=== PATIENT | female | born 1995 | race Hispanic/Latino ===

== ENCOUNTER 2018-02-19 01:33 | Emergency (ER) | payer OTHER, SELFPAY ==
[2018-02-19] MEDS ORDERED: NA CHLORIDE 0.9% 0 ML ONE (02:19)
[2018-02-19] MEDS ORDERED: NA CHLORIDE 0.9% 3,000 ML ONE (02:20)
[2018-02-19] MEDS ORDERED: NA CHLORIDE 0.9% 1,000 ML ONE (02:20)
[2018-02-19 02:27] LABS: Urine Blood TRACE (NEG); Urine Glucose NEGATIVE (NEG); Urine Protein NEGATIVE (NEG); Urine pH 6.5 (5.0-7.0)
[2018-02-19 02:31] LABS: Absolute Lymphocytes (CBC) 1.8 K/uL (0.7-4.9); Absolute Monocytes 0.5 K/uL (0.1-1.3); Absolute Neutrophil 4.8 K/uL (1.8-8.0); Basophils % 0.8 % (0-1.3); Eosinophils % 0.4 % (0-4.4); Hematocrit 43.8 % (36.0-45.0); Lymphocytes % 25.1 % (15.3-44.8); MCH 30.3 pg (27.0-35.0); MCV 92.8 fL (80-100); MPV 9.4 fL (7.6-11.3); Monocytes % 7.1 % (3.3-12.3); RBC Red Blood Cell Count 4.72 M/uL (3.86-4.86)
[2018-02-19 02:34] LABS: Protime INR 1.05
[2018-02-19 02:36] LABS: Barbiturates NEGATIVE; Benzodiazepines POSITIVE; Cocaine POSITIVE; METHAMPHETAM NEGATIVE (NEGATIVE); Opiates NEGATIVE; Phencyclidine NEGATIVE; THC Cannibis POSITIVE
[2018-02-19 02:37] LABS: Bicarbonate 29 mEq/L (21-31); Glucose Level 76 mg/dL (65-120); Potassium 3.3 mEq/L (3.6-5.0); Sodium Level 139 mEq/L (135-145)
[2018-02-19 02:43] LABS: ALT/SGPT 14 IU/L (10-60); AST/SGOT 20 IU/L (10-42); Albumin 5.4 g/dL (3.2-5.5); Alkaline Phosphatase 67 IU/L (42-121); BUN Blood Urea Nitrogen 6 mg/dL (6-20); Bilirubin Direct 0.1 mg/dL (0-0.2); Bilirubin Total 0.9 mg/dL (0.3-1.2); Protein, Total 8.8 g/dL (6.0-8.3)
[2018-02-19 02:48] LABS: Alcohol Serum/Plasma < 10 mg/dl
--- NOTE | 2018-02-19 09:57 | EDPHYS ---
Physician Documentation [facility] Name: Terri Fortune Age: 22 yrs Sex: Female : 1995 Arrival Date: 02/19/2018 Time: 01:59 Bed 3 Private MD: ED Physician Jaron Hernandez HPI: 02/19 05:31 This 22 yrs old Female presents to ER via Ambulatory with complaints of gs Overdose. 05:31 The patient presents to the emergency department after a known overdose, that was gs intentional. Context: Method: the patient has a confirmed or suspected ingestion, of benzodiazepines. Associated signs and symptoms: Pertinent positives: cut left forearm. Severity of symptoms: At their worst the symptoms were mild in the emergency department the symptoms are unchanged. The patient has experienced similar episodes in the past, a few times. The patient has not recently seen a physician. 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 - Social history:: Smoking status: Patient/guardian denies using tobacco, Patient uses alcohol, street drugs, marijuana. - Ebola Screening: : No symptoms or risks identified at this time. ROS: 05:31 All other systems are negative. gs Exam: 05:31 Head/Face: Normocephalic, atraumatic. Eyes: Pupils equal round and reactive to light, gs extra-ocular motions intact. Lids and lashes normal. Conjunctiva and sclera are non-icteric and not injected. Cornea within normal limits. Periorbital areas with no swelling, redness, or edema. ENT: Nares patent. No nasal discharge, no septal abnormalities noted. Tympanic membranes are normal and external auditory canals are clear. Oropharynx with no redness, swelling, or masses, exudates, or evidence of obstruction, uvula midline. Mucous membranes moist. Neck: Trachea midline, no thyromegaly or masses palpated, and no cervical lymphadenopathy. Supple, full range of motion without nuchal rigidity, or vertebral point tenderness. No Meningismus. Chest/axilla: Normal chest wall appearance and motion. Nontender with no deformity. No lesions are appreciated. Cardiovascular: Regular rate and rhythm with a normal S1 and S2. No gallops, murmurs, or rubs. Normal PMI, no JVD. No pulse deficits. Respiratory: Lungs have equal breath sounds bilaterally, clear to auscultation and percussion. No rales, rhonchi or wheezes noted. No increased work of breathing, no retractions or nasal flaring. Abdomen/GI: Soft, non-tender, with normal bowel sounds. No distension or tympany. No guarding or rebound. No evidence of tenderness throughout. Back: No spinal tenderness. No costovertebral tenderness. Full range of motion. MS/ Extremity: Pulses equal, no cyanosis. Neurovascular intact. Full, normal range of motion. Neuro: Awake and alert, GCS 15, oriented to person, place, time, and situation. Cranial nerves II-XII grossly intact. Motor strength 5/5 in all extremities. Sensory grossly intact. Cerebellar exam normal. Normal gait. 05:31 Constitutional: The patient appears alert, awake. 05:31 Skin: injury, laceration(s), the wound is approximately 4 cm(s), with a depth of .1 cm(s), of the palmar aspect of left forearm. 05:31 Psych: Behavior/mood is depressed, Patient having thoughts of suicide. Vital Signs: 02:01 BP 103 / 69; Pulse 98; Resp 20; Temp 97.7(O); Pulse Ox 98% on R/A; Weight 56.7 kg (R); bb Height 5 ft. 2 in. (157.48 cm) (R); Pain 0/10; 02:30 BP 107 / 70; Pulse 80; Resp 19; Pulse Ox 100% on R/A; lp1 03:30 BP 99 / 70; Pulse 71; Resp 20; Pulse Ox 100% on R/A; lp1 05:00 BP 88 / 55; Pulse 55; Resp 19; Pulse Ox 97% on R/A; lp1 05:50 BP 97 / 73; Pulse 60; Resp 20; Pulse Ox 98% on R/A; lp1 07:00 BP 98 / 65; Pulse 58; Resp 19; Pulse Ox 99% on R/A; lp1 08:35 BP 95 / ???; ap 08:35 BP 95 / 69; Pulse 58; Resp 19; Temp 95.8; Pulse Ox 98% ; Pain 0/10; ap 10:22 BP 107 / 80; Pulse 85; Resp 20; Temp 97.5; Pulse Ox 100% ; Pain 0/10; ap 12:06 BP 98 / 67; Pulse 56; Resp 16; Pulse Ox 98% on R/A; sv 14:07 BP 84 / 56; Pulse 64; Resp 13; rv 14:31 BP 83 / 54; Pulse 63; Resp 18; Temp 97.5; Pulse Ox 98% ; Pain 0/10; ap 16:30 BP 103 / 68; Pulse 65; Resp 16; Temp 97.5; Pulse Ox 100% ; Pain 0/10; ap 17:11 BP 105 / 76; Pulse 73; Resp 15; Pulse Ox 99% on R/A; mt 18:00 BP 112 / 85; Pulse 57; Resp 16; Pulse Ox 98% on R/A; mt 19:00 BP 110 / 78; Pulse 68; Resp 18; Pulse Ox 99% on R/A; ea 02:01 Body Mass Index 22.86 (56.70 kg, 157.48 cm) bb MDM: 02:04 Patient medically screened. 05:31 Differential diagnosis: Ingestion/exposure to xanax polypharmacy. Data reviewed: vital gs signs, nurses notes. Response to treatment: the patient's symptoms have markedly improved after treatment. 02/19 02:06 Order name: Acetaminophen; Complete Time: 02:02/19 02:06 Order name: Basic Metabolic Panel; Complete Time: 02:02/19 02:06 Order name: CBC with Diff; Complete Time: 02:02/19 02:06 Order name: ETOH Level; Complete Time: 02:02/19 02:06 Order name: Hepatic Function; Complete Time: 02:02/19 02:06 Order name: PT-INR; Complete Time: 02:02/19 02:06 Order name: Ptt, Activated; Complete Time: 02:02/19 02:06 Order name: Salicylate; Complete Time: 02:02/19 02:06 Order name: Urine Drug Screen; Complete Time: 02:53 02/19 02:06 Order name: EKG; Complete Time: 02:07 02/19 02:15 Order name: Urine Dipstick--Ancillary (enter results); Complete Time: 02:53 mw2 02/19 02:15 Order name: Urine --Ancillary (enter results); Complete Time: 02:53 mw2 02/19 02:06 Order name: EKG - Nurse/Tech; Complete Time: 02:06 bb 02/19 02:06 Order name: IV Saline Lock; Complete Time: 02:07 bb 02/19 02:06 Order name: Labs collected and sent; Complete Time: 02: bb 02/19 02:06 Order name: Urine Dipstick-Ancillary (obtain specimen); Complete Time: 02: bb 02/19 10:16 Order name: Diet Regular; Complete Time: 10:16 sv 02/19 11:02 Order name: Diet Regular; Complete Time: 11:02 hb 02/19 16:21 Order name: Diet Regular; Complete Time: 16:22 sv Administered Medications: 02:17 Drug: NS 0.9% 1000 ml Route: IV; Rate: 1 bolus; Site: right antecubital; bb 03:30 Follow up: IV Status: Completed infusion; IV Intake: 1000ml lp1 10:16 Drug: NS 0.9% 1000 ml Route: IV; Rate: 1 bolus; Site: right antecubital; sv 12:00 Follow up: Response: No adverse reaction; IV Status: Completed infusion; IV Intake: sv 1000ml Disposition: 02/19/18 19:00 Discharged to Home. Impression: Suicide attempt, Adjustment disorder with depressed mood, Hypokalemia, Abuse of non-psychoactive substances, Cocaine abuse with intoxication. - Condition is Stable. - Discharge Instructions: Adjustment Disorder, Stimulant Use Disorder-Cocaine, Potassium Content of Foods, Polysubstance Abuse, Helping Someone Who is Suicidal, Hypokalemia. - Medication Reconciliation Form, Thank You Letter, Antibiotic Education, Prescription Opioid Use form. - Follow up: Private Physician; When: 2 - 3 days; Reason: Recheck today's complaints, Continuance of care, Re-evaluation by your physician. - Problem is new. - Symptoms have improved. Signatures: Dispatcher [employer] EDSari Morris RN RN sv Anderson, Corey, MD MD cha Ballard, Brenda, RN RN bb Antunez, Elena, RN RN ea Starr, Gregory, MD MD gs Pena, Laura RN lp1 Corrections: (The following items were deleted from the chart) 18:58 09:56 02/19/2018 09:56 Transfer ordered to Psych Facility. Diagnosis is Suicide curtis attempt; Major depressive disorder, recurrent; Abuse of non-psychoactive substances; Cocaine abuse. Reason for transfer: Higher level of care. Accepting physician is to psych. Condition is Fair. Problem is new. Symptoms have improved. [facility] 19:17 19:00 02/19/2018 19:00 Discharged to Home. Impression: Suicide attempt; Adjustment ea disorder with depressed mood; Hypokalemia; Abuse of non-psychoactive substances; Cocaine abuse with intoxication. Condition is Stable. Forms are Medication Reconciliation Form, Thank You Letter, Antibiotic Education, Prescription Opioid Use. Follow up: Private Physician; When: 2 - 3 days; Reason: Recheck today's complaints, Continuance of care, Re-evaluation by your physician. Problem is new. Symptoms have improved. curtis
--- NOTE | 2018-02-19 09:57 | ER ---
Nurse's Notes [facility] Name: Terri Fortune Age: 22 yrs Sex: Female : 1995 Arrival Date: 02/19/2018 Time: 01:59 Bed 3 Private MD: Diagnosis: Suicide attempt;Adjustment disorder with depressed mood;Hypokalemia;Abuse of non-psychoactive substances;Cocaine abuse with intoxication Presentation: 02/19 02:00 Presenting complaint: Patient states: she took approx 20 Xanax and drank alcohol about bb 2 hours ago she also cut her left forearm in an attempt to hurt herself. Transition of care: patient was not received from another setting of care. Onset of symptoms was February 19, 2018. Risk Assessment: Do you want to hurt yourself or someone else? Patient reports desire/thoughts of hurting themselves or someone else. Provider notified. Initial Sepsis Screen: Does the patient meet any 2 criteria? No. Patient's initial sepsis screen is negative. Does the patient have a suspected source of infection? No. Patient's initial sepsis screen is negative. Care prior to arrival: None. 02:00 Method Of Arrival: Ambulatory bb 02:00 Acuity: CARRI 2 bb 02:14 Note pt now states she has taken the Xanax over a period of time starting at around bb 1500 yesterday afternoon. [employer]: 02:01 LMP 02/01/2018 bb Historical: - Allergies: 02:01 No Known Allergies; bb - Home Meds: 02:01 None [Active]; bb - PMHx: 02:01 None; bb - PSHx: 02:01 None; bb - Immunization history:: Adult Immunizations up to date. - Social history:: Smoking status: Patient/guardian denies using tobacco, Patient uses alcohol, street drugs, marijuana. - Ebola Screening: : No symptoms or risks identified at this time. Screenin:22 Abuse screen: Denies threats or abuse. Denies injuries from another. Nutritional lp1 screening: No deficits noted. Tuberculosis screening: No symptoms or risk factors identified. Fall Risk None identified. Assessment: 02:25 General: Appears in no apparent distress. Behavior is calm, cooperative. Pain: Denies lp1 pain. Neuro: Level of Consciousness is awake, alert, obeys commands, Oriented to person, place, time, situation, Moves all extremities. Full function Gait is steady, Pupils are PERRLA. Cardiovascular: Patient's skin is warm and dry. Rhythm is sinus rhythm. Respiratory: Airway is patent Respiratory effort is even, unlabored, Respiratory pattern is regular, symmetrical, Breath sounds are clear bilaterally. GI: Abdomen is non-distended. : No signs and/or symptoms were reported regarding the genitourinary system. EENT: No signs and/or symptoms were reported regarding the EENT system. Derm: Skin is pink, warm \T\ dry. Musculoskeletal: Circulation, motion, and sensation intact. 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 03:30 Reassessment: Patient appears in no apparent distress at this time. Patient and/or lp1 family updated on plan of care and expected duration. Pain level reassessed. Patient resting, eyes closed, respirations unlabored; friend at bedside. 04:27 Reassessment: Patient appears in no apparent distress at this time. No changes from 1 previously documented assessment. Patient and/or family updated on plan of care and expected duration. Pain level reassessed. 06:04 Reassessment: [facility] at bedside to evaluate patient. [facility] 06:41 Reassessment: Patient appears in no apparent distress at this time. Patient is alert, lp1 oriented x 3, equal unlabored respirations, skin warm/dry/pink. 07:15 Reassessment: Patient appears in no apparent distress at this time. Patient and/or hb family updated on plan of care and expected duration. Pain level reassessed. Patient is alert, oriented x 3, equal unlabored respirations, skin warm/dry/pink. 10:00 Reassessment: Patient appears in no apparent distress at this time. Patient and/or sv family updated on plan of care and expected duration. Pain level reassessed. Patient is alert, oriented x 3, equal unlabored respirations, skin warm/dry/pink. Pt given a breakfast tray. 11:58 Reassessment: Patient appears in no apparent distress at this time. Patient and/or sv family updated on plan of care and expected duration. Pain level reassessed. Patient is alert, oriented x 3, equal unlabored respirations, skin warm/dry/pink. Pt appears to be sleeping at this time with eyes closed. 12:30 Reassessment: mother (Leigh) left cell phone number , father (Cheikh) iw number is [phone]. 12:30 Reassessment: Pt given lunch tray and water. sv 13:03 Reassessment: Patient appears in no apparent distress at this time. Patient and/or hb family updated on plan of care and expected duration. Pain level reassessed. Patient is alert, oriented x 3, equal unlabored respirations, skin warm/dry/pink. 14:00 Reassessment: Patient appears in no apparent distress at this time. No changes from hb previously documented assessment. Patient and/or family updated on plan of care and expected duration. Pain level reassessed. Patient is alert, oriented x 3, equal unlabored respirations, skin warm/dry/pink. 14:56 Reassessment: Patient appears in no apparent distress at this time. No changes from hb previously documented assessment. Patient and/or family updated on plan of care and expected duration. Pain level reassessed. Patient is alert, oriented x 3, equal unlabored respirations, skin warm/dry/pink. 15:25 Reassessment: Patient appears in no apparent distress at this time. Patient and/or sv family updated on plan of care and expected duration. Pain level reassessed. Pt appears to be sleeping at this time. Family is at the bedside. 16:20 Reassessment: Patient appears in no apparent distress at this time. No changes from sv previously documented assessment. Patient and/or family updated on plan of care and expected duration. Pain level reassessed. Patient is alert, oriented x 3, equal unlabored respirations, skin warm/dry/pink. Pt ambulatory to the bathroom with sitter. Patient denies pain at this time. 17:15 Reassessment: Patient appears in no apparent distress at this time. No changes from hb previously documented assessment. Patient and/or family updated on plan of care and expected duration. Pain level reassessed. Patient is alert, oriented x 3, equal unlabored respirations, skin warm/dry/pink. 18:15 Reassessment: Patient appears in no apparent distress at this time. No changes from hb previously documented assessment. Patient and/or family updated on plan of care and expected duration. Pain level reassessed. Patient is alert, oriented x 3, equal unlabored respirations, skin warm/dry/pink. 18:56 Reassessment: Dr Hernandez at bedside speaking with the pt. sv 19:13 Reassessment: Discharge instructions given to patient, verbalized the understanding of ea instructions. General: Appears in no apparent distress. Behavior is calm, cooperative. Pain: Denies pain. Neuro: Level of Consciousness is awake, alert, obeys commands, Oriented to person, place, time, situation, Gait is steady. Cardiovascular: Patient's skin is warm and dry. Respiratory: Airway is patent Respiratory effort is even, unlabored, Respiratory pattern is regular, symmetrical. Derm: Skin is pink, warm \T\ dry. Psych: 02:15 Subjective: Patient's mood is sad, hopeless, Delusions are denied, Hallucinations are lp1 denied Having thoughts of suicide. Plan for suicide is Patient cut to left wrist with kitchen knife, ingested multiple Xanax pills and alcohol. Objective: Patient is cooperative, Speech is normal, Affect is flat, Patient has mutilated themselves by kitchen knife; superficial lacerations to left wrist. Interventions: Removed personal items and placed in bag. Patient placed in hospital gown. Searched person for dangerous items. Urine collected and sent for urine drug test. Suicide Risk Assessment: Sad Person Scale: Sex of patient: Female: Score 0 points. Age of patient: Score 1 point if patient 15-34. Depression: Score 0 point if signs of depression are not present. Previous Attempt: Score 0 point if patient has not previously attempted suicide. Substance Abuse: Score 1 point if patient abuses alcohol or drugs. Rational Thinking: Score 1 point if patient is lacking rational thinking. Social Support: Score 1 point if social support is lacking and/or unavailable. Organized Plan: Score 1 point if patient had a plan in place. Relationship: Score 1 point if patient is , , , or for a single male Chronic Sickness: Score 0 point if patient does not have a chronic illness, debilitating, or severe disorder. TOTAL POINTS: If total points are 5-6, proposed clinical action is to strongly consider hospitalization, depending upon confidence in the follow-up arrangement. Implement suicide precautions. Safety Checks: Personal items have been removed. Door is open. Visitors are present. 02:15 Pt denies substance abuse. lp1 08:00 Commitment: Patient will be an involuntary commitment. Commitment papers completed. sv Overdose: 02:04 Patient took Xanax 20 pills unknown strength and drank alcohol. Overdose occurred 8-10 bb hours ago. Vital Signs: 02:01 BP 103 / 69; Pulse 98; Resp 20; Temp 97.7(O); Pulse Ox 98% on R/A; Weight 56.7 kg (R); bb Height 5 ft. 2 in. (157.48 cm) (R); Pain 0/10; 02:30 BP 107 / 70; Pulse 80; Resp 19; Pulse Ox 100% on R/A; lp1 03:30 BP 99 / 70; Pulse 71; Resp 20; Pulse Ox 100% on R/A; lp1 05:00 BP 88 / 55; Pulse 55; Resp 19; Pulse Ox 97% on R/A; lp1 05:50 BP 97 / 73; Pulse 60; Resp 20; Pulse Ox 98% on R/A; lp1 07:00 BP 98 / 65; Pulse 58; Resp 19; Pulse Ox 99% on R/A; lp1 08:35 BP 95 / ???; ap 08:35 BP 95 / 69; Pulse 58; Resp 19; Temp 95.8; Pulse Ox 98% ; Pain 0/10; ap 10:22 BP 107 / 80; Pulse 85; Resp 20; Temp 97.5; Pulse Ox 100% ; Pain 0/10; ap 12:06 BP 98 / 67; Pulse 56; Resp 16; Pulse Ox 98% on R/A; sv 14:07 BP 84 / 56; Pulse 64; Resp 13; rv 14:31 BP 83 / 54; Pulse 63; Resp 18; Temp 97.5; Pulse Ox 98% ; Pain 0/10; ap 16:30 BP 103 / 68; Pulse 65; Resp 16; Temp 97.5; Pulse Ox 100% ; Pain 0/10; ap 17:11 BP 105 / 76; Pulse 73; Resp 15; Pulse Ox 99% on R/A; mt 18:00 BP 112 / 85; Pulse 57; Resp 16; Pulse Ox 98% on R/A; mt 19:00 BP 110 / 78; Pulse 68; Resp 18; Pulse Ox 99% on R/A; ea 02:01 Body Mass Index 22.86 (56.70 kg, 157.48 cm) bb ED Course: 01:53 Inserted saline lock: 20 gauge in right antecubital area, using aseptic technique. lp1 Blood collected. By brendon Antoine. 01:59 Patient arrived in ED. bb 02:00 Urine collected: clean catch specimen, clear. lp1 02:01 Triage completed. bb 02:01 Donnell Ang MD is Attending Physician. 02:01 Arm band placed on Patient placed in an exam room, on a stretcher. bb 02:21 Mirian Ha RN is Primary Nurse. lp1 02:22 Patient has correct armband on for positive identification. Placed in gown. Bed in low lp1 position. press washer on. Pulse ox on. NIBP on. 02:45 Safety checks: Items removed: yes. Door open/sign placed on door: yes. Family/friend cb2 present: yes. Family/friends encouraged to stay with patient. 03:00 Safety checks: Items removed: yes. Door open/sign placed on door: yes. Family/friend cb2 present: yes. Family/friends encouraged to stay with patient. 03:15 Safety checks: Items removed: yes. Door open/sign placed on door: yes. Family/friend cb2 present: yes. Family/friends encouraged to stay with patient. 03:30 Safety checks: Items removed: yes. Door open/sign placed on door: yes. Family/friend cb2 present: yes. 03:45 Safety checks: Items removed: yes. Door open/sign placed on door: yes. Family/friend cb2 present: yes. Family/friends encouraged to stay with patient. 04:00 Safety checks: Items removed: yes. Door open/sign placed on door: yes. Family/friend cb2 present: yes. Family/friends encouraged to stay with patient. 04:18 Safety checks: Items removed: yes. Door open/sign placed on door: yes. Family/friend cb2 present: yes. 04:30 Safety checks: Items removed: yes. Door open/sign placed on door: yes. Family/friend cb2 present: yes. Family/friends encouraged to stay with patient. 04:46 Safety checks: Items removed: yes. Door open/sign placed on door: yes. Family/friend cb2 present: yes. Family/friends encouraged to stay with patient. 05:05 Safety checks: Items removed: yes. Door open/sign placed on door: yes. Family/friend cb2 present: yes. Family/friends encouraged to stay with patient. 05:16 Safety checks: Items removed: yes. Door open/sign placed on door: yes. Family/friend cb2 present: yes. Family/friends encouraged to stay with patient. 05:30 Safety checks: Door open/sign placed on door: yes. Family/friend present: yes. cb2 05:41 Safety checks: Items removed: yes. Door open/sign placed on door: yes. Family/friend cb2 present: yes. Family/friends encouraged to stay with patient. 05:41 Safety checks: Items removed: yes. cb2 06:46 Safety checks: Items removed: yes. Door open/sign placed on door: yes. Family/friend cb2 present: yes. Family/friends encouraged to stay with patient. 07:00 Safety Checks: Personal items have been removed. The door is open or patient has been hb placed in a hallway bed/chair. Sitter present at this time. 07:15 Safety Checks: Personal items have been removed. The door is open or patient has been hb placed in a hallway bed/chair. Sitter present at this time. 07:21 Patient's demographics and clinical's were faxed to all Psych facilities \T\ [id number]. [facility] called at 07:15 to report they have no beds. 07:30 Safety Checks: Personal items have been removed. The door is open or patient has been hb placed in a hallway bed/chair. Sitter present at this time. 07:45 Safety Checks: Personal items have been removed. The door is open or patient has been hb placed in a hallway bed/chair. Sitter present at this time. 08:00 Safety Checks: Personal items have been removed. The door is open or patient has been sv placed in a hallway bed/chair. Sitter present at this time. 08:15 Safety Checks: Personal items have been removed. The door is open or patient has been sv placed in a hallway bed/chair. Sitter present at this time. 08:30 Safety Checks: Personal items have been removed. The door is open or patient has been sv placed in a hallway bed/chair. Sitter present at this time. 08:30 Safety checks: Items removed: yes. Door open/sign placed on door: yes. Family/friend ap present: no. 08:45 Safety checks: Items removed: yes. Door open/sign placed on door: yes. Family/friend ap present: no. 09:00 Safety checks: Items removed: yes. Door open/sign placed on door: yes. Family/friend ap present: no. 09:15 Safety checks: Items removed: yes. Door open/sign placed on door: yes. Family/friend ap present: no. 09:30 Safety checks: Items removed: yes. Door open/sign placed on door: yes. Family/friend ap present: no. 09:45 Safety checks: Items removed: yes. Door open/sign placed on door: yes. Family/friend ap present: no. 09:57 Primary Nurse role handed off by Mirian Ha RN sv 09:57 Sari James RN is Primary Nurse. sv 10:00 Safety checks: Items removed: yes. Door open/sign placed on door: yes. Family/friend ap present: no. 10:15 Safety checks: Items removed: yes. Door open/sign placed on door: yes. Family/friend ap present: yes. 10:30 Safety checks: Items removed: yes. Door open/sign placed on door: yes. Family/friend ap present: yes. 10:45 Safety checks: Items removed: yes. Door open/sign placed on door: yes. Family/friend ap present: yes. Family/friends encouraged to stay with patient. 11:00 Safety checks: Items removed: yes. Door open/sign placed on door: yes. Family/friend ap present: yes. Family/friends encouraged to stay with patient. 11:15 Safety checks: Items removed: yes. Door open/sign placed on door: yes. Family/friend ap present: yes. Family/friends encouraged to stay with patient. 11:30 Safety checks: Items removed: Door open/sign placed on door: yes. Family/friend ap present: yes. Family/friends encouraged to stay with patient. 11:45 Safety checks: Items removed: yes. Door open/sign placed on door: yes. Family/friend ap present: yes. Family/friends encouraged to stay with patient. 12:00 Safety checks: Items removed: yes. Door open/sign placed on door: yes. Family/friend ap present: yes. Family/friends encouraged to stay with patient. 12:15 Safety checks: Items removed: yes. Door open/sign placed on door: yes. Family/friend ap present: no. 12:30 Safety checks: Items removed: yes. Door open/sign placed on door: yes. Family/friend ap present: no. 12:45 Safety checks: Items removed: yes. Door open/sign placed on door: yes. Family/friend ap present: no. 13:00 Safety checks: Items removed: yes. Door open/sign placed on door: yes. Family/friend ap present: no. 13:15 Safety checks: Items removed: yes. Door open/sign placed on door: yes. Family/friend ap present: no. 13:29 Safety checks: Items removed: yes. Door open/sign placed on door: yes. Family/friend ap present: no. 13:29 No beds available at [facility], [facility]. 13:45 Safety checks: Items removed: yes. Door open/sign placed on door: yes. Family/friend ap present: no. 14:00 Safety checks: Items removed: yes. Door open/sign placed on door: yes. Family/friend ap present: no. 14:15 Safety checks: Items removed: yes. Door open/sign placed on door: yes. Family/friend ap present: no. 14:34 Safety checks: Items removed: yes. Door open/sign placed on door: yes. Family/friend ap present: no. 14:45 Safety checks: Items removed: yes. Door open/sign placed on door: yes. Family/friend ap present: no. 15:00 Safety checks: Items removed: yes. Door open/sign placed on door: yes. Family/friend ap present: no. 15:15 Safety checks: Items removed: yes. Door open/sign placed on door: yes. Family/friend ap present: no. 15:30 Safety checks: Items removed: yes. Door open/sign placed on door: Family/friend ap present: yes. 15:30 Safety checks: Items removed: yes. Door open/sign placed on door: yes. Family/friend ap present: yes. Family/friends encouraged to stay with patient. 15:45 Safety checks: Items removed: yes. Door open/sign placed on door: yes. Family/friend ap present: yes. Family/friends encouraged to stay with patient. 16:00 Safety checks: Items removed: yes. Door open/sign placed on door: yes. Family/friend ap present: no. 16:15 Safety checks: Items removed: yes. Door open/sign placed on door: yes. Family/friend ap present: no. 16:30 Safety checks: Items removed: yes. Door open/sign placed on door: yes. Family/friend ap present: no. 16:45 Safety checks: Items removed: yes. Door open/sign placed on door: yes. Family/friend ap present: no. 16:59 Safety checks: Items removed: yes. Door open/sign placed on door: yes. Family/friend ap present: no. 17:00 Safety checks: Items removed: yes. Door open/sign placed on door: yes. Family/friend mt present: yes. 17:15 Safety checks: Items removed: yes. Door open/sign placed on door: yes. Family/friend mt present: yes. 17:30 Safety checks: Items removed: yes. Door open/sign placed on door: yes. Family/friend mt present: yes. 17:45 Safety checks: Items removed: yes. Door open/sign placed on door: yes. Family/friend mt present: yes. 17:55 Refaxed all paper work to psych facilities still pending. Talked to Emma at [facility] and they still have no beds available. 18:00 Safety checks: Items removed: yes. Door open/sign placed on door: yes. Family/friend mt present: yes. 18:15 Safety checks: Items removed: yes. Door open/sign placed on door: yes. Family/friend mt present: yes. 18:30 Safety checks: Items removed: yes. Door open/sign placed on door: yes. Family/friend mt present: yes. 18:45 Safety checks: Items removed: yes. Door open/sign placed on door: yes. Family/friend mt present: yes. 18:58 Attending Physician role handed off by Donnell Ang MD [facility] 18:58 Jaron Hernandez MD is Attending Physician. [facility] 19:06 Primary Nurse role handed off by Sari James RN 19:15 No provider procedures requiring assistance completed. IV discontinued, intact, ea bleeding controlled, No redness/swelling at site. Pressure dressing applied. Administered Medications: 02:17 Drug: NS 0.9% 1000 ml Route: IV; Rate: 1 bolus; Site: right antecubital; bb 03:30 Follow up: IV Status: Completed infusion; IV Intake: 1000ml lp1 10:16 Drug: NS 0.9% 1000 ml Route: IV; Rate: 1 bolus; Site: right antecubital; sv 12:00 Follow up: Response: No adverse reaction; IV Status: Completed infusion; IV Intake: sv 1000ml Intake: 03:30 IV: 1000ml; Total: 1000ml. lp1 10:00 PO: 300ml (Water); Total: 1300ml. sv 12:00 IV: 1000ml; Total: 2300ml. sv 12:51 PO: 200ml (Water); Total: 2500ml. sv 16:31 PO: 240ml (Water); Total: 2740ml. sv 16:31 up to bathroom sv Output: 16:31 Other: 1; Total: 0ml. sv 16:31 up to bathroom sv Outcome: 09:56 ER care complete, transfer ordered by MD. curtis 19:00 Discharge ordered by MD. curtis 19:15 Discharged to home ambulatory, with friend. ea 19:15 Condition: improved 19:15 Discharge instructions given to patient, Instructed on discharge instructions, follow up and referral plans. Demonstrated understanding of instructions, follow-up care. 19:17 Patient left the ED. ea Signatures: Sari James, Jaron iRvera RN, MD MD cha Ballard, Brenda RN Pushpa Guillaume RN RN iw Pena, Laura, RN RN lp1 Flower Perez Ana ap Baxter, Heather, RN CY Arash Duenas [facility] Maribell Herm[place] pa Nohemy Collins RN RN ea Starr, Gregory, MD MD gs Vicente, Ronaldo, RN RN rv Corrections: (The following items were deleted from the chart) 02:05 02:04 Overdose occurred 1-2 hours ago. bb bb 03:22 02:45 Safety checks: Door open/sign placed on door: yes. Family/friend present: yes. cb2 Family/friends encouraged to stay with patient. cb2 03:23 03:00 Safety checks: Door open/sign placed on door: yes. Family/friend present: yes. cb2 Family/friends encouraged to stay with patient. cb2 10:47 10:44 Safety checks: Items removed: yes. Door open/sign placed on door: yes. ap Family/friend present: yes. ap 13:29 13:28 Safety checks: Items removed: yes. Door open/sign placed on door: yes. ap Family/friend present: no. ap 16:30 16:29 Safety checks: Items removed: yes. Door open/sign placed on door: yes. ap Family/friend present: no. ap 16:48 16:43 Safety checks: Items removed: ap ap
--- NOTE | 2018-02-19 17:40 | EKG ---
Test Date: 2018-02-19 Test Time: 01:48:39 Nut Threader: ROMEL MEASUREMENT RESULTS: Intervals: Rate: 85 NE: 166 QRSD: 74 QT: 358 QTc: 426 [place]: P: 64 NE: 166 QRS: 81 T: 61 INTERPRETIVE STATEMENTS: Normal sinus rhythm Normal ECG No previous ECG available for comparison Electronically Signed On 02-19-18 17:37:12 CDT by Benjamin Pierre
== END 2018-02-19 19:17 | disposition home or self-care (01) ==
LOC: ER 01:33
DX: F43.21 Adjustment disorder with depressed mood (principal); E87.6 Hypokalemia; F14.129 Cocaine abuse with intoxication, unspecified; F55.8 Abuse of other non-psychoactive substances
CPT/HCPCS: 36415; 80048; 80076; 80307; 80320; 80329; 81003; 81025; 85025; 85610; 85730; 93005; 96360; 96361; 99285; J7030

== ENCOUNTER 2020-07-28 11:51 | Emergency (ER) | payer SELFPAY ==
--- OUTSIDE RECORDS SUMMARY | 2020-07-28 11:53 | XMS REPORT | Continuity of Care Document ---
:1995 Author Organization [facility] t Address [address] [place] [address] Care Team Providers Name Role Phone Becca De Jesus Attending Clinician Problems This patient has no known problems. Allergies, Adverse Reactions, Alerts This patient has no known allergies or adverse reactions. Medications This patient has no known medications. Procedures This patient has no known procedures. Encounters Start End Encounter Admission Attending Care Care Encounter Source Date/Time Date/Time Type Type Clinicians Facility Department ID 2020-02-02 2020-02-03 CHRISTEN Daley [id number] 20:34:53 01:22:00 Becca Mcclendon [id number] [place] [id number] [place] [id number] Results This patient has no known results.
[2020-07-28] MEDS ORDERED: DIPHENHYDRAMINE 50 MG/ML VIAL ONE (12:31)
[2020-07-28 12:48] LABS: Absolute Lymphocytes (CBC) 2.3 K/uL (0.7-4.9); Basophils % 0.8 % (0-1.3); Hematocrit 40.7 % (36.0-45.0); Lymphocytes % 27.1 % (15.3-44.8); MPV 9.2 fL (7.6-11.3); RBC Red Blood Cell Count 4.52 M/uL (3.86-4.86)
[2020-07-28 12:53] LABS: Barbiturates NEGATIVE (NEGATIVE); Benzodiazepines NEGATIVE (NEGATIVE); Cocaine NEGATIVE (NEGATIVE); METHAMPHETAM NEGATIVE (NEGATIVE); Methadone NEGATIVE (NEGATIVE); Opiates NEGATIVE (NEGATIVE); Phencyclidine NEGATIVE (NEGATIVE); THC Cannibis POSITIVE (NEGATIVE)
[2020-07-28 12:57] LABS: Protime INR 0.97
[2020-07-28 13:03] LABS: BUN Blood Urea Nitrogen 11 mg/dL (7-18); Bicarbonate 25 mmol/L (21-32); Glucose Level 91 mg/dL (74-106); Magnesium 2.3 mg/dL (1.8-2.4); Potassium 3.4 mmol/L (3.5-5.1); Sodium Level 142 mmol/L (136-145); Troponin (Emerg Dept Use Only) < 0.02 ng/mL (0.0-0.045)
--- NOTE | 2020-07-28 13:17 | RAD REPORT ---
EXAM DESCRIPTION: Jean-Pierre Single View07/28/2020 12:57 pm CLINICAL HISTORY: sob COMPARISON: 2013 FINDINGS: The lungs appear clear of acute infiltrate. The heart is normal size IMPRESSION: No acute abnormalities displayed
--- NOTE | 2020-07-28 13:37 | ER ---
Nurse's Notes [facility] Name: Terri Fortune Age: 24 yrs Sex: Female : 1995 Arrival Date: 07/28/2020 Time: 11:53 Bed 4 Private MD: Diagnosis: Other chest pain;Shortness of breath Presentation: 07/28 12:09 Chief complaint: Patient states: mild shortness of breath x 2 weeks. Became worse this ss morning while at work. Pt reports that she felt a little anxious and having to wear two separate masks at work seemed to make things worse. Denies fever. Coronavirus screen: Client denies travel out of the [place] in the last 14 days. Ebola Screen: Patient denies exposure to infectious person. Patient denies travel to an Ebola-affected area in the 21 days before illness onset. Initial Sepsis Screen: Does the patient meet any 2 criteria? RR > 20 per min. Does the patient have a suspected source of infection? No. Patient's initial sepsis screen is negative. Risk Assessment: Do you want to hurt yourself or someone else? Patient reports no desire to harm self or others. Onset of symptoms is unknown. 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 - Social history:: Smoking status: Patient reports the use of cigarette tobacco products, denies chronic smoking, but will smoke occasionally. Screenin:15 Abuse screen: Denies threats or abuse. Denies injuries from another. Nutritional ss screening: No deficits noted. Tuberculosis screening: Never had TB. Fall Risk None identified. Assessment: 12:15 General: Appears uncomfortable, Behavior is calm, cooperative, Denies fever, feeling ss ill, fatigue, chills. Pain: Denies pain. Neuro: Level of Consciousness is awake, alert, obeys commands, Oriented to person, place, time, situation, Moves all extremities. Full function Gait is steady, Speech is normal, Facial symmetry appears normal, Pupils are PERRLA. Cardiovascular: Heart tones S1 S2 present Capillary refill < 3 seconds is brisk in bilateral fingers Rhythm is regular. Respiratory: Reports shortness of breath mild shortness of breath that began 2 weeks ago, has gotten much worse since 1030/. Pt reports at 1030 she was at work, has to wear two different masks and has to talk a lot which she believes made her anxious and ultimately made her shortness of breath so much worse. Respiratory: Reports pain with respiration since 1030 this morning Airway is patent Respiratory effort is even, unlabored, Respiratory pattern is regular, symmetrical, Breath sounds are clear bilaterally. GI: Patient currently denies diarrhea, nausea, vomiting. : No signs and/or symptoms were reported regarding the genitourinary system. Denies burning with urination, urinary frequency. EENT: Oral mucosa is moist. Throat is clear. Derm: Skin is intact, is healthy with good turgor, Skin is dry, Skin is pink, warm \T\ dry. normal. Musculoskeletal: Circulation, motion, and sensation intact. Range of motion: intact in all extremities, Swelling absent. 13:15 Reassessment: Patient appears in no apparent distress at this time. Pt is resting at this time, eyes closed. Respirations remain even and unlabored. 14:09 Reassessment: Patient appears in no apparent distress at this time. Patient and/or ss family updated on plan of care and expected duration. Pain level reassessed. Patient is alert, oriented x 3, equal unlabored respirations, skin warm/dry/pink. Patient denies pain at this time. Patient states feeling better. Patient states symptoms have improved. Vital Signs: 12:09 BP 130 / 74; Pulse 85; Resp 24; Temp 97.8(TE); Pulse Ox 99% on R/A; Weight 63.5 kg; Height 5 ft. 2 in. (157.48 cm); Pain 0/10; 12:38 BP 111 / 77; Pulse 85; Resp 20; Temp 97.9(O); Pulse Ox 100% on R/A; mh5 13:34 BP 100 / 70; Pulse 73; Resp 16; Temp 97.6(O); Pulse Ox 100% on R/A; mh5 12:09 Body Mass Index 25.61 (63.50 kg, 157.48 cm) ED Course: 11:53 Patient arrived in ED. as 11:57 Jaron Rahman PA is PHCP. cp 11:57 Jaron Hernandez MD is Attending Physician. cp 12:11 Triage completed. ss 12:11 Arm band placed on right wrist. ss 12:16 Anna Queen RN is Primary Nurse. ss 12:30 Inserted saline lock: 20 gauge in left antecubital area, using aseptic technique. Blood ss collected. 12:31 Patient has correct armband on for positive identification. Placed in gown. Bed in low mh5 position. Call light in reach. Side rails up X 1. Adult w/ patient. Warm blanket given. monitoring coordinator on. Pulse ox on. NIBP on. 12:31 Initial lab(s) drawn, by ED staff, sent to lab. Urine collected: clean catch specimen, 5 clear, EKG done, by ED staff, reviewed by Jaron WORKMAN. 12:58 Chest Single View In Process Unspecified. EDMS 14:02 IV discontinued, Pressure dressing applied. [facility] 14:09 No provider procedures requiring assistance completed. ss 14:10 IV discontinued, intact, bleeding controlled, No redness/swelling at site. Pressure ss dressing applied. Administered Medications: 12:29 Drug: Benadryl 25 mg Route: IVP; Site: left antecubital; ss 13:29 Drug: Potassium Effervescent Tablet 25 mEq Route: PO; ss 13:40 Follow up: Response: Medication administered at discharge. Outcome: 13:36 Discharge ordered by MD. cp 14:09 Discharged to home ambulatory, with family. 14:09 Condition: improved 14:09 Discharge instructions given to patient, family, Instructed on discharge instructions, follow up and referral plans. medication usage, Demonstrated understanding of instructions, follow-up care, medications, Prescriptions given X 2. 14:10 Patient left the ED. ss Signatures: Dispatcher [employer] EDMS Gisela Grossman Shelby, RN RN ss Jaron Rahman PA PA cp Shannan Grossman [facility] Corrections: (The following items were deleted from the chart) 12:43 12:40 General: Appears uncomfortable, Behavior is calm, cooperative, Denies fever, ss feeling ill, fatigue, chills, ss 12:43 12:40 Pain: Denies pain. ss ss 12:43 12:40 Neuro: Level of Consciousness is awake, alert, obeys commands, Oriented to ss person, place, time, situation, Moves all extremities. Full function Gait is steady, Speech is normal, Facial symmetry appears normal, Pupils are PERRLA, ss 12: 12:40 Cardiovascular: Heart tones S1 S2 present Capillary refill < 3 seconds is brisk ss in bilateral fingers Rhythm is regular ss 12: 12:40 Respiratory: Reports shortness of breath mild shortness of breath that began 2 ss weeks ago, has gotten much worse since 1030/. Pt reports at 1030 she was at work, has to wear two different masks and has to talk a lot which she believes made her anxious and ultimately made her shortness of breath so much worse. ss 12: 12:40 GI: Patient currently denies diarrhea, nausea, vomiting, ss ss 12: 12:40 Respiratory: Airway is patent Respiratory effort is even, unlabored, Respiratory ss pattern is regular, symmetrical, Breath sounds are clear bilaterally. ss 12: 12:40 Derm: Skin is intact, is healthy with good turgor, Skin is dry, Skin is pink, ss warm \T\ dry. normal, ss : 12:40 : No signs and/or symptoms were reported regarding the genitourinary system. ss Denies burning with urination, urinary frequency, ss : 12:40 EENT: Oral mucosa is moist. Throat is clear ss ss : 12:40 Musculoskeletal: Circulation, motion, and sensation intact. Range of motion: ss intact in all extremities, Swelling absent ss
--- NOTE | 2020-07-28 13:37 | EDPHYS ---
Physician Documentation [facility] Name: Terri Fortune Age: 24 yrs Sex: Female : 1995 Arrival Date: 07/28/2020 Time: 11:53 Bed 4 Private MD: Jaron Ponce HPI: 07/28 12:10 This 24 yrs old Female presents to ER via Ambulatory with complaints of cp Shortness Of Breath. 12:10 The patient has shortness of breath at rest. cp 12:10 Onset: The symptoms/episode began/occurred 2 week(s) ago, and became worse this cp morning, while at work. Duration: The symptoms are intermittent. The patient's shortness of breath is aggravated by light activity. 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 - Social history:: Smoking status: Patient reports the use of cigarette tobacco products, denies chronic smoking, but will smoke occasionally. ROS: 12:15 Constitutional: Negative for body aches, chills, fever, poor PO intake. cp 12:15 Eyes: Negative for injury, pain, redness, and discharge. cp 12:15 ENT: Negative for drainage from ear(s), ear pain, sore throat, difficulty swallowing, difficulty handling secretions. 12:15 Cardiovascular: Positive for chest pain, Negative for edema, palpitations. 12:15 Respiratory: Positive for shortness of breath, at rest. Negative for cough. 12:15 Abdomen/GI: Negative for abdominal pain, nausea, vomiting, and diarrhea. 12:15 Back: Negative for radiated pain. 12:15 Neuro: Negative for altered mental status, headache, syncope, weakness. 12:15 All other systems are negative. Exam: 12:20 Head/Face: Normocephalic, atraumatic. cp 12:20 Constitutional: The patient appears in no acute distress, alert, awake, non-diaphoretic, non-toxic, well developed, well nourished. 12:20 Eyes: Periorbital structures: appear normal, Conjunctiva: normal, no exudate, no injection, Sclera: no appreciated abnormality, Lids and lashes: appear normal, bilaterally. 12:20 ENT: External ear(s): are unremarkable, Ear canal(s): are normal, clear, TM's: dullness, bilaterally, Nose: is normal, Mouth: Lips: moist, Oral mucosa: moist, Posterior pharynx: is normal, airway is patent, no erythema, no exudate. 12:20 Neck: ROM/movement: is normal, is supple, without pain, no range of motions limitations. 12:20 Chest/axilla: Inspection: normal, Palpation: is normal, no crepitus, no tenderness. 12:20 Cardiovascular: Rate: normal, Rhythm: regular, Edema: is not appreciated, JVD: is not appreciated. 12:20 Respiratory: the patient does not display signs of respiratory distress, Respirations: labored breathing, is not present, intercostal retractions, are absent, splinting, is not noted, Breath sounds: are clear throughout, no decreased breath sounds, no stridor, no wheezing. 12:20 Abdomen/GI: Inspection: abdomen appears normal, Palpation: abdomen is soft and non-tender, in all quadrants. 12:20 Back: pain, is absent, ROM is normal. 12:20 Neuro: Orientation: to person, place \T\ time. Mentation: is normal, Cerebellar function: is grossly normal, Motor: moves all fours, strength is normal, Sensation: is normal. Vital Signs: 12:09 BP 130 / 74; Pulse 85; Resp 24; Temp 97.8(TE); Pulse Ox 99% on R/A; Weight 63.5 kg; ss Height 5 ft. 2 in. (157.48 cm); Pain 0/10; 12:38 BP 111 / 77; Pulse 85; Resp 20; Temp 97.9(O); Pulse Ox 100% on R/A; mh5 13:34 BP 100 / 70; Pulse 73; Resp 16; Temp 97.6(O); Pulse Ox 100% on R/A; mh5 12:09 Body Mass Index 25.61 (63.50 kg, 157.48 cm) MDM: 12:02 Patient medically screened. [facility] 13:35 Data reviewed: vital signs, nurses notes, lab test result(s), EKG, radiologic studies, cp plain films. 13:35 Counseling: I had a detailed discussion with the patient and/or guardian regarding: the cp historical points, exam findings, and any diagnostic results supporting the discharge/admit diagnosis, lab results, radiology results, to return to the emergency department if symptoms worsen or persist or if there are any questions or concerns that arise at home. Response to treatment: the patient's symptoms have markedly improved after treatment, and as a result, I will discharge patient. Special discussion: Based on the patient's history, exam, and Dx evaluation, there is no indication for emergent intervention or inpatient Tx. It is understood by the patient/guardian that if the Sx's persist or worsen they need to return immediately for re-evaluation. 07/28 12:33 Order name: Urine Dipstick--Ancillary (enter results) em1 07/28 12:39 Order name: Basic Metabolic Panel; Complete Time: 13:22 EDMS 07/28 13:22 Interpretation: Normal except: K 3.4; CL 111. cp 07/28 12:39 Order name: Troponin (Emerg Dept Use Only); Complete Time: 13:22 EDMS 07/28 12:39 Order name: Magnesium; Complete Time: 13:22 EDMS 07/28 12:39 Order name: Test Serum, [place]; Complete Time: 13:22 EDMS 07/28 12:40 Order name: CBC with Automated Diff; Complete Time: 13:22 EDMS 07/28 12:06 Order name: EKG; Complete Time: 14:47 cp 07/28 12:06 Order name: Cardiac monitoring; Complete Time: 12:12 cp 07/28 12:06 Order name: EKG - Nurse/Tech; Complete Time: 12:28 cp 07/28 12:06 Order name: IV Saline Lock; Complete Time: 12:28 cp 07/28 12:06 Order name: Labs collected and sent; Complete Time: 12:28 cp 07/28 12:06 Order name: O2 Per Protocol; Complete Time: 12:28 cp 07/28 12:06 Order name: O2 Sat Monitoring; Complete Time: 12:28 cp 07/28 12:06 Order name: Urine Dipstick-Ancillary (obtain specimen); Complete Time: 12:30 cp 07/28 12:06 Order name: Urine Test (obtain specimen); Complete Time: 12:30 cp 07/28 12:28 Order name: Chest Single View; Complete Time: 13:22 EDDE 07/28 12:40 Order name: Protime (+INR); Complete Time: 13:22 EDDE 07/28 12:40 Order name: D-Dimer; Complete Time: 13:22 EDDE 07/28 12:40 Order name: Urine Drug Screen; Complete Time: 13:22 EDMS Administered Medications: 12:29 Drug: Benadryl 25 mg Route: IVP; Site: left antecubital; ss 13:29 Drug: Potassium Effervescent Tablet 25 mEq Route: PO; ss 13:40 Follow up: Response: Medication administered at discharge. Disposition: 07/28/20 13:36 Discharged to Home. Impression: Other chest pain, Shortness of breath. - Condition is Stable. - Discharge Instructions: Nonspecific Chest Pain, Shortness of Breath. - Prescriptions for Diclofenac Sodium 75 mg Oral Tablet Sustained Release - take 1 tablet by ORAL route 2 times per day; 30 tablet. Albuterol Sulfate 90 mcg/actuation - inhale 1-2 puff by INHALATION route every 4-6 hours; 1 Inhaler. - Medication Reconciliation Form, Thank You Letter, Antibiotic Education, Prescription Opioid Use form. - Follow up: Private Physician; When: 2 - 3 days; Reason: Recheck today's complaints. - Problem is new. - Symptoms have improved. Addendum: 07/29/2020 14:42 Co-signature as Attending Physician, Jaron Hernandez MD I agree with the assessment and c fleming plan of care. Signatures: Dispatcher [employer] [facility] Jaron Hernandez MD MD cha Smirch, Shelby, RN RN ss Jaron Rahman PA PA cp Corrections: (The following items were deleted from the chart) 07/28 14:10 13:36 07/28/2020 13:36 Discharged to Home. Impression: Other chest pain; Shortness of ss breath. Condition is Stable. Forms are Medication Reconciliation Form, Thank You Letter, Antibiotic Education, Prescription Opioid Use. Follow up: Private Physician; When: 2 - 3 days; Reason: Recheck today's complaints. Problem is new. Symptoms have improved. cp 07/29 12:10 07/28 11:20 Constitutional: The patient appears in no acute distress, alert, awake, cp non-diaphoretic, non-toxic, well developed, well nourished, cp 07/29 12:07/28 11:20 Head/Face: Normocephalic, atraumatic. cp cp 07/29 12:07/28 11:20 Eyes: Periorbital structures: appear normal, Conjunctiva: normal, no cp exudate, no injection, Sclera: no appreciated abnormality, Lids and lashes: appear normal, bilaterally, cp 07/29 12:07/28 11:20 ENT: External ear(s): are unremarkable, Ear canal(s): are normal, clear, cp TM's: dullness, bilaterally, Nose: is normal, Mouth: Lips: moist, Oral mucosa: moist, Posterior pharynx: is normal, airway is patent, no erythema, no exudate, cp 07/29 12:07/28 11:20 Neck: ROM/movement: is normal, is supple, without pain, no range of motions cp limitations, cp 07/29 12:07/28 11:20 Chest/axilla: Inspection: normal, Palpation: is normal, no crepitus, no cp tenderness, cp 07/29 12:07/28 11:20 Cardiovascular: Rate: normal, Rhythm: regular, Edema: is not appreciated, cp JVD: is not appreciated, cp 07/29 12:07/28 11:20 Respiratory: the patient does not display signs of respiratory distress, cp Respirations: labored breathing, is not present, intercostal retractions, are absent, splinting, is not noted, Breath sounds: are clear throughout, no decreased breath sounds, no stridor, no wheezing, cp 07/29 12:07/28 11:20 Abdomen/GI: Inspection: abdomen appears normal, Palpation: abdomen is soft cp and non-tender, in all quadrants, cp 07/29 12:07/28 11:20 Back: pain, is absent, ROM is normal, cp cp 07/29 12:07/28 11:20 Neuro: Orientation: to person, place \T\ time. Mentation: is normal, cp Cerebellar function: is grossly normal, Motor: moves all fours, strength is normal, Sensation: is normal, cp
[2020-07-28] MEDS ORDERED: POTASSIUM 25 MEQ EFFERV TAB ONE (13:40)
[2020-07-28 14:26] VITALS: O2SAT 100
[2020-07-28 14:28] VITALS: BP 100/70; TEMP 97.6
[2020-07-28 17:32] LABS: Urine Blood NEGATIVE (NEG); Urine Glucose NEGATIVE (NEG); Urine Protein NEGATIVE (NEG); Urine Specific Gravity <1.005 (1.005-1.030); Urine pH 5.5 (5.0-7.0)
--- NOTE | 2020-07-29 10:13 | EKG ---
Test Date: 2020-07-28 Test Time: 12:20:57 Mission Assessment Specialist: DRAKE MEASUREMENT RESULTS: Intervals: Rate: 80 HI: 170 QRSD: 68 QT: 386 QTc: 445 [place]: P: 40 HI: 170 QRS: 83 T: 61 INTERPRETIVE STATEMENTS: Normal sinus rhythm Normal ECG Compared to ECG 02/19/2018 01:48:39 No significant changes Electronically Signed On 07-29-20 10:10:20 BATCH PLANT SUPERVISOR by Benjamin Pierre
== END 2020-07-28 14:10 | disposition home or self-care (01) ==
LOC: ER 11:51
DX: R07.89 Other chest pain (principal); F17.210 Nicotine dependence, cigarettes, uncomplicated
CPT/HCPCS: 36415; 71045; 80048; 80307; 81003; 83735; 84484; 84703; 85025; 85379; 85610; 93005; 96374; 99285; J1200

== ENCOUNTER 2021-02-21 23:54 | Emergency (ER) | payer SELFPAY ==
--- OUTSIDE RECORDS SUMMARY | 2021-02-21 23:57 | XMS REPORT | Continuity of Care Document ---
:1995 Author Organization [facility] t Address [address] [place] [address] [address] [place] [address] Care Team Providers Name Role Phone Yaw DURAN Attending Clinician Problems This patient has no known problems. Allergies, Adverse Reactions, Alerts This patient has no known allergies or adverse reactions. Medications This patient has no known medications. Procedures This patient has no known procedures. Encounters Start End Encounter Admission Attending Care Care Encounter Source Date/Time Date/Time Type Type Clinicians Facility Department ID 2020-02-02 2020-02-03 Akhil Tidwell [facility] [id number] 20:34:53 01:22:00 Becca [place] [id number] [place] [id number] [place] [id number] Results This patient has no known results.
[2021-02-22 01:58] LABS: Basophils % 0.9 % (0-1.3); Hematocrit 42.1 % (36.0-45.0); MPV 8.9 fL (7.6-11.3); RBC Red Blood Cell Count 4.58 M/uL (3.86-4.86)
[2021-02-22] MEDS ORDERED: ONDANSETRON 4 MG/2 ML VIAL ONE (02:21)
[2021-02-22] MEDS ORDERED: MORPHINE 2 MG/ML SYR ONE (02:21)
[2021-02-22 02:22] LABS: ALT/SGPT 25 U/L (12-78); AST/SGOT 14 U/L (15-37); Albumin 3.5 g/dL (3.4-5.0); Alkaline Phosphatase 89 U/L (45-117); BUN Blood Urea Nitrogen 11 mg/dL (7-18); Bicarbonate 25 mmol/L (21-32); Bilirubin Direct < 0.1 mg/dL (0-0.2); Bilirubin Total 0.2 mg/dL (0.2-1.0); Glucose Level 97 mg/dL (74-106); Lipase 57 U/L (73-393); Potassium 3.8 mmol/L (3.5-5.1); Protein, Total 7.4 g/dL (6.4-8.2); Sodium Level 142 mmol/L (136-145)
[2021-02-22] MEDS ORDERED: NA CHLORIDE 0.9% 1,000 ML ONE (02:22)
[2021-02-22 03:12] LABS: Urine Blood 1+ (Negative); Urine Glucose Negative (Negative); Urine Protein Negative (Negative); Urine Specific Gravity 1.015 (1.005-1.030)
[2021-02-22 03:22] LABS: Urine Specific Gravity/Preg 1.015 (1.005-1.030)
[2021-02-22] MEDS ORDERED: CEFTRIAXONE/SWI 1gm 1 GM/10 ML SYR ONE (03:28)
[2021-02-22 04:51] LABS: Urine Amorphous Sediment 1+ /HPF (NONE SEEN); Urine Bacteria >50 /HPF (<20); Urine Mucus 1+ /HPF (NONE SEEN); Urine RBC <5 /HPF (NONE SEEN)
--- NOTE | 2021-02-22 06:18 | ER ---
Nurse's Notes [facility] Name: Terri Fortune Age: 25 yrs Sex: Female : 1995 Arrival Date: 02/21/2021 Time: 23:57 Bed 2 Private MD: Diagnosis: Pyelonephritis;Vaginitis Presentation: 02/22 00:33 Chief complaint: Patient states: she is having abdominal pain in lower abdominal area. bb Pt was treated for chlamydia she has been to the doctor three times for this had her antibiotics stopped and was started on an antifungal for a possible yeast infection but the abdominal pain is getting worse she can barely walk. She has also developed sores and swelling in her pelvic area. Coronavirus screen: At this time, the client does not indicate any symptoms associated with coronavirus-19. Ebola Screen: No symptoms or risks identified at this time. Initial Sepsis Screen: Does the patient meet any 2 criteria? No. Patient's initial sepsis screen is negative. Does the patient have a suspected source of infection? No. Patient's initial sepsis screen is negative. Risk Assessment: Do you want to hurt yourself or someone else? Patient reports no desire to harm self or others. Onset of symptoms was February 18, 2021. 00:33 Method Of Arrival: Ambulatory bb 00:33 Acuity: CARRI 3 bb Triage Assessment: 00:36 General: Appears uncomfortable, Behavior is calm, cooperative. Pain: Complains of pain bb in pelvis Pain currently is 9 out of 10 on a pain scale. Neuro: Level of Consciousness is awake, alert, obeys commands, Oriented to person, place, time, situation. Cardiovascular: Capillary refill < 3 seconds Patient's skin is warm and dry. Respiratory: Respiratory effort is even, unlabored, Respiratory pattern is regular. GI: Reports lower abdominal pain. : Reports possible yeast infection. Derm: Skin is pink, warm \T\ dry. Musculoskeletal: Circulation, motion, and sensation intact. 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 - Social history:: Smoking status: Patient denies any tobacco usage or history of. Screenin:06 Abuse screen: Denies threats or abuse. Nutritional screening: No deficits noted. jb4 Tuberculosis screening: No symptoms or risk factors identified. Fall Risk None identified. Assessment: 01:06 General: Appears in no apparent distress. uncomfortable, Behavior is calm, cooperative, jb4 appropriate for age. Pain: Complains of pain in right lower quadrant and left lower quadrant Pain does not radiate. Pain currently is 9 out of 10 on a pain scale. Quality of pain is described as crampy, Pain began 3 weeks ago Is intermittent, Alleviated by rest, repositioning. Neuro: Level of Consciousness is awake, alert, obeys commands, Oriented to person, place, time, situation. Cardiovascular: Patient's skin is warm and dry. Respiratory: Airway is patent Respiratory effort is even, unlabored, Respiratory pattern is regular, symmetrical. GI: No signs and/or symptoms were reported involving the gastrointestinal system. : No signs and/or symptoms were reported regarding the genitourinary system. EENT: No signs and/or symptoms were reported regarding the EENT system. Derm: Skin is intact, Skin is pink, warm \T\ dry. Musculoskeletal: Circulation, motion, and sensation intact. Range of motion: intact in all extremities. 02:00 Reassessment: Patient appears in no apparent distress at this time. Patient and/or jb4 family updated on plan of care and expected duration. Pain level reassessed. Patient is alert, oriented x 3, equal unlabored respirations, skin warm/dry/pink. 02:53 Reassessment: Patient appears in no apparent distress at this time. No changes from jb4 previously documented assessment. Patient and/or family updated on plan of care and expected duration. Pain level reassessed. 04:05 Reassessment: Patient appears in no apparent distress at this time. Patient and/or jb4 family updated on plan of care and expected duration. Pain level reassessed. Patient is alert, oriented x 3, equal unlabored respirations, skin warm/dry/pink. 05:00 Reassessment: Patient and/or family updated on plan of care and expected duration. Pain jb4 level reassessed. PT is resting in bed with even and unlabored respirations. No s/s of pain or distress noted. 05:51 Reassessment: Patient appears in no apparent distress at this time. No changes from jb4 previously documented assessment. Patient and/or family updated on plan of care and expected duration. Pain level reassessed. Vital Signs: 00:33 BP 122 / 85; Pulse 95; Resp 16 S; Temp 99.2(O); Pulse Ox 99% on R/A; Weight 65.32 kg bb (R); Height 5 ft. 2 in. (157.48 cm) (R); Pain 9/10; 02:00 BP 107 / 77; Pulse 87; Resp 18; Pulse Ox 99% on R/A; jb4 03:00 BP 113 / 74; Pulse 78; Resp 16; Pulse Ox 98% on R/A; jb4 04:00 BP 110 / 74; Pulse 86; Resp 16; Pulse Ox 99% on R/A; jb4 05:00 BP 113 / 75; Pulse 72; Resp 16; Pulse Ox 97% on R/A; jb4 00:33 Body Mass Index 26.34 (65.32 kg, 157.48 cm) ED Course: 02/21 23:57 Patient arrived in ED. 02/22 00:36 Triage completed. bb 00:36 Arm band placed on Patient placed in waiting room, Patient notified of wait time. bb 00:57 Eddie Vaz, RN is Primary Nurse. [facility] 01:01 Marcus Long MD is Attending Physician. 7 01:06 Patient has correct armband on for positive identification. Bed in low position. Call jb4 light in reach. Side rails up X 1. Pulse ox on. NIBP on. 02:01 Inserted saline lock: 20 gauge in left forearm, using aseptic technique. Blood rr5 collected. 02:40 Assist provider with pelvic exam: Set up pelvic tray. Performed by Marcus vicente Specimens sent to lab. Patient tolerated well. 03:46 CT Abd/Pelvis - IV Contrast Only In Process Unspecified. EDMS 06:17 Valentina Valencia MD is Referral Physician. 7 06:36 IV discontinued, intact, bleeding controlled, No redness/swelling at site. Pressure jb4 dressing applied. Administered Medications: 02:11 Drug: Zofran (Ondansetron) 4 mg Route: IVP; Site: left antecubital; jb4 02:45 Follow up: Response: No adverse reaction; Marked relief of symptoms; Nausea is decreasedjb4 02:11 Drug: NS 0.9% 1000 ml Route: IV; Rate: 1000 ml; Site: left antecubital; jb4 02:52 Follow up: Response: No adverse reaction; IV Status: Completed infusion; IV Intake: jb4 1000ml 02:12 Drug: morphine 2 mg Route: IVP; Site: left antecubital; jb4 02:45 Follow up: Response: No adverse reaction; Marked relief of symptoms; Pain is decreased; jb4 RASS: Alert and Calm (0) 03:14 Drug: Rocephin (cefTRIAXone) 1 grams Route: IV; Rate: per protocol; Site: left jb4 antecubital; Intake: 02:52 IV: 1000ml; Total: 1000ml. jb4 Outcome: 06:18 Discharge ordered by . mh7 06:35 Discharged to home ambulatory, with family. jb4 06:35 Condition: stable 06:35 Discharge instructions given to patient, Instructed on discharge instructions, follow up and referral plans. medication usage, Demonstrated understanding of instructions, follow-up care, medications, Prescriptions given X 4. 06:36 Patient left the ED. jb4 Signatures: Dispatcher [employer] Azucena Mccarty Brenda, RN RN Eddie Chaudhary RN RN jb4 Pradip Quarles RN RN rr5 Marcus Long MD MD mh7
--- NOTE | 2021-02-22 06:18 | EDPHYS ---
Physician Documentation [facility] Name: Terri Fortune Age: 25 yrs Sex: Female : 1995 Arrival Date: 02/21/2021 Time: 23:57 Bed 2 Private MD: ED Physician Marcus Long HPI: 02/22 03:45 This 25 yrs old Female presents to ER via Ambulatory with complaints of mh7 Abdominal Pain. 03:45 The patient presents with abdominal pain in the lower abdomen. mh7 03:45 Onset: The symptoms/episode began/occurred 5 day(s) ago. The symptoms do not radiate. mh7 03:46 Associated signs and symptoms: Pertinent positives: dysuria, vaginal discharge, mh7 Pertinent negatives: nausea, vomiting, and diarrhea, nausea and vomiting, anorexia, blood in stools, chest pain, constipation, diarrhea, fever, headache, hematuria, nausea, palpitations, shortness of breath, vomiting, vomiting blood. The symptoms are described as intermittent, vague, waxing/waning. Modifying factors: The symptoms are alleviated by nothing, the symptoms are aggravated by movement, touching the area. Severity of pain: At its worst the pain was moderate 3 day(s) ago, in the emergency department the pain has improved moderately. 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 - Social history:: Smoking status: Patient denies any tobacco usage or history of. ROS: 03:46 Constitutional: Negative for fever, chills, and weight loss, Eyes: Negative for injury, mh7 pain, redness, and discharge, ENT: Negative for injury, pain, and discharge, Neck: Negative for injury, pain, and swelling, Cardiovascular: Negative for chest pain, palpitations, and edema, Respiratory: Negative for shortness of breath, cough, wheezing, and pleuritic chest pain, Back: Negative for injury and pain, MS/Extremity: Negative for injury and deformity, Skin: Negative for injury, rash, and discoloration, Neuro: Negative for headache, weakness, numbness, tingling, and seizure, Psych: Negative for depression, anxiety, suicide ideation, homicidal ideation, and hallucinations, Allergy/Immunology: Negative for hives, rash, and allergies, Endocrine: Negative for neck swelling, polydipsia, polyuria, polyphagia, and marked weight changes, Hematologic/Lymphatic: Negative for swollen nodes, abnormal bleeding, and unusual bruising. Exam: 03:46 Constitutional: This is a well developed, well nourished patient who is awake, alert, mh7 and in no acute distress. Head/Face: Normocephalic, atraumatic. Eyes: Pupils equal round and reactive to light, extra-ocular motions intact. Lids and lashes normal. Conjunctiva and sclera are non-icteric and not injected. Cornea within normal limits. Periorbital areas with no swelling, redness, or edema. Neck: Trachea midline, no thyromegaly or masses palpated, and no cervical lymphadenopathy. Supple, full range of motion without nuchal rigidity, or vertebral point tenderness. No Meningismus. Chest/axilla: Normal chest wall appearance and motion. Nontender with no deformity. No lesions are appreciated. Cardiovascular: Regular rate and rhythm with a normal S1 and S2. No gallops, murmurs, or rubs. Normal PMI, no JVD. No pulse deficits. Respiratory: Lungs have equal breath sounds bilaterally, clear to auscultation and percussion. No rales, rhonchi or wheezes noted. No increased work of breathing, no retractions or nasal flaring. 03:46 Back: No spinal tenderness. No costovertebral tenderness. Full range of motion. 03:46 Skin: Warm, dry with normal turgor. Normal color with no rashes, no lesions, and no evidence of cellulitis. MS/ Extremity: Pulses equal, no cyanosis. Neurovascular intact. Full, normal range of motion. Neuro: Awake and alert, GCS 15, oriented to person, place, time, and situation. Cranial nerves II-XII grossly intact. Motor strength 5/5 in all extremities. Sensory grossly intact. Cerebellar exam normal. Normal gait. Psych: Awake, alert, with orientation to person, place and time. Behavior, mood, and affect are within normal limits. 03:46 Abdomen/GI: Inspection: abdomen appears normal, Bowel sounds: normal, in all quadrants, Palpation: moderate abdominal tenderness, in the suprapubic area, right lower quadrant and left lower quadrant, mass, is not appreciated, rebound tenderness, is not appreciated, voluntary guarding, is not appreciated, involuntary guarding, is not appreciated, no appreciated organomegaly, Rectal exam: the exam is deferred, because of patient request, Indicators: McBurney's point is not tender, Lopez's sign is negative, Rovsing's sign is negative, Obturator sign is negative, Psoas sign is negative, Liver: no appreciated palpable abnormalities, Hernia: not appreciated. 03:46 : CVA tenderness, is absent, Pelvic Exam: External exam: reveals ulcerations on external genitalia, Speculum exam: no bleeding is noted, no cervicitis, os that is closed, no tissue in cervix is seen, no tissue in vagina is seen, white discharge, bimanual exam reveals no cervical motion tenderness, os that is closed, normal sized uterus, discharge, white, the nurse was present for the exam, Bladder: tenderness, that is mild. Vital Signs: 00:33 BP 122 / 85; Pulse 95; Resp 16 S; Temp 99.2(O); Pulse Ox 99% on R/A; Weight 65.32 kg bb (R); Height 5 ft. 2 in. (157.48 cm) (R); Pain 9/10; 02:00 BP 107 / 77; Pulse 87; Resp 18; Pulse Ox 99% on R/A; jb4 03:00 BP 113 / 74; Pulse 78; Resp 16; Pulse Ox 98% on R/A; jb4 04:00 BP 110 / 74; Pulse 86; Resp 16; Pulse Ox 99% on R/A; jb4 05:00 BP 113 / 75; Pulse 72; Resp 16; Pulse Ox 97% on R/A; jb4 00:33 Body Mass Index 26.34 (65.32 kg, 157.48 cm) bb MDM: 06:15 Differential diagnosis: appendicitis, bowel obstruction, diverticulitis, Ectopic mh7 , non-specific abd pain, Pelvic Inflammatory Disease, Pyelonephritis, Ureterolithiasis, urinary tract infection. Data reviewed: vital signs, nurses notes, lab test result(s), CBC, electrolytes, urinalysis, UPT: negative radiologic studies, CT scan. Data interpreted: Pulse oximetry: on room air is 97 %. Interpretation: normal. Counseling: I had a detailed discussion with the patient and/or guardian regarding: the historical points, exam findings, and any diagnostic results supporting the discharge/admit diagnosis, lab results, radiology results, the need for outpatient follow up, to return to the emergency department if symptoms worsen or persist or if there are any questions or concerns that arise at home. Response to treatment: the patient's symptoms have markedly improved after treatment. 06:18 Patient medically screened. [facility] 02/22 01:40 Order name: Basic Metabolic Panel [facility] 02/22 01:40 Order name: CBC with Diff [facility] 02/22 01:40 Order name: Hepatic Function [facility] 02/22 01:40 Order name: Lipase [facility] 02/22 01:41 Order name: Basic Metabolic Panel; Complete Time: 02:55 [facility] 02/22 01:41 Order name: Liver (Hepatic) Function; Complete Time: 02:55 [facility] 02/22 01:41 Order name: Lipase; Complete Time: 02:55 [facility] 02/22 01:41 Order name: CBC with Automated Diff; Complete Time: 02:55 [facility] 02/22 03:03 Order name: Urine Microscopic Only; Complete Time: 06:16 [facility] 02/22 03:03 Order name: Urine Culture [facility] 02/22 03:11 Order name: Urine Dipstick-Ancillary; Complete Time: 04:49 [facility] 02/22 03:19 Order name: Urine --Ancillary (enter results); Complete Time: 04:49 [facility] 02/22 05:55 Order name: Wet Prep [facility] 02/22 01:40 Order name: IV Saline Lock; Complete Time: 01:57 [facility] 02/22 01:40 Order name: Labs collected and sent; Complete Time: 01:57 [facility] 02/22 01:40 Order name: Urine Dipstick-Ancillary (obtain specimen); Complete Time: 03:04 [facility] 02/22 01:40 Order name: Urine Test (obtain specimen); Complete Time: 03:04 [facility] 02/22 02:56 Order name: CT Abd/Pelvis - IV Contrast Only [facility] Administered Medications: 02:11 Drug: Zofran (Ondansetron) 4 mg Route: IVP; Site: left antecubital; [facility] 02:45 Follow up: Response: No adverse reaction; Marked relief of symptoms; Nausea is decreasedjb4 02:11 Drug: NS 0.9% 1000 ml Route: IV; Rate: 1000 ml; Site: left antecubital; jb4 02:52 Follow up: Response: No adverse reaction; IV Status: Completed infusion; IV Intake: jb4 1000ml 02:12 Drug: morphine 2 mg Route: IVP; Site: left antecubital; jb4 02:45 Follow up: Response: No adverse reaction; Marked relief of symptoms; Pain is decreased; jb4 RASS: Alert and Calm (0) 03:14 Drug: Rocephin (cefTRIAXone) 1 grams Route: IV; Rate: per protocol; Site: left jb4 antecubital; Disposition: 02/22/21 06:18 Discharged to Home. Impression: Pyelonephritis, Vaginitis. - Condition is Stable. - Discharge Instructions: Pyelonephritis, Adult, Guag-vv-Hpii, Vaginitis, [id number]-dg-[id number]. - Prescriptions for Flagyl 500 mg Oral Tablet - take 1 tablet by ORAL route every 12 hours for 7 days; 14 tablet. Ibuprofen 600 mg Oral Tablet - take 1 tablet by ORAL route every 8 hours As needed take with food; 15 tablet. Doxycycline Hyclate 100 mg Oral Tablet - take 1 tablet by ORAL route every 12 hours for 7 days; 14 tablet. Cipro 500 mg Oral Tablet - take 1 tablet by ORAL route every 12 hours for 10 days; 20 tablet. - Medication Reconciliation Form, Thank You Letter, Antibiotic Education, Prescription Opioid Use form. - Work release form (02/22/21 06:38). jb4 - Follow up: Private Physician; When: 1 - 2 days; Reason: Worsening of condition, Recheck today's complaints, Continuance of care, Re-evaluation by your physician. Follow up: Valentina Valencia MD; When: 1 - 2 days; Reason: Worsening of condition, Recheck today's complaints. - Problem is new. - Symptoms have improved. Signatures: Dispatcher [employer] Tamanna Alarcon RN RN Eddie Chaudhary RN RN jb4 Marcus Long MD MD mh7 Corrections: (The following items were deleted from the chart) 05:55 05:55 GC Culture+[id number].LAB.BRZ ordered. EDMS EDMS 06:36 06:18 02/22/2021 06:18 Discharged to Home. Impression: Pyelonephritis; Vaginitis. jb4 Condition is Stable. Forms are Medication Reconciliation Form, Thank You Letter, Antibiotic Education, Prescription Opioid Use. Follow up: Private Physician; When: 1 - 2 days; Reason: Worsening of condition, Recheck today's complaints, Continuance of care, Re-evaluation by your physician. Follow up: Valentina Valencia; When: 1 - 2 days; Reason: Worsening of condition, Recheck today's complaints. Problem is new. Symptoms have improved. mh7
[2021-02-22 06:47] VITALS: TEMP 99.2
[2021-02-22 06:53] VITALS: BP 113/75; O2SAT 97
--- NOTE | 2021-02-22 19:04 | RAD REPORT ---
EXAM DESCRIPTION: CT Abdomen and Pelvis COMPARISON: CT abdomen and pelvis April 10, 2016 CLINICAL HISTORY: [facility] MAIN ABD PAIN TECHNIQUE: CT of the abdomen and pelvis was acquired with IV contrast material. Coronal and sagitt al reconstructions were obtained. Automated exposure control was utilized on this examination as a dose lowering technique. FINDINGS: Lung bases: Clear. Liver: Normal. Gallbladder and biliary: Normal gallbladder. Unremarkable biliary tree. Pancreas: Normal. Spleen: Normal. Adrenal glands: Normal adrenal glands. Kidneys: Faint bilateral cortical hypoenhancing foci are seen on the venous phase imaging. Stomach and Small Bowel: The stomach and small bowel are normal. Urinary bladder: Normal. Uterus and Adnexa: Normal. Colon and Appendix: The colon is unremarkable. No evidence of appendicitis. Retroperitoneum and lymph nodes: Normal. Vascular: Normal. Peritoneal cavity: Trace pelvic fluid is likely physiologic. No intraperitoneal free air. Musculoskeletal and soft tissues: A 2.9 cm subcutaneous hematoma of the right flank is present with f oci of gas. No aggressive bone lesions. No compression fracture. IMPRESSION: 1. Early bilateral pyelonephritis. 2. 2.9 cm subcutaneous hematoma of the right flank with foci of gas. This is likely due to medication administration. Electronically signed by: Jayant Garcia MD 02/22/2021 3:57 AM CDT Due to temporary technical issues with the PACS/Fluency reporting system, reports are being signed by the in house radiologists without review as a courtesy to insure prompt reporting. The interpreting radiologist is fully responsible for the content of the report.
== END 2021-02-22 06:36 | disposition home or self-care (01) ==
LOC: ER 23:54
DX: N12 Tubulo-interstitial nephritis, not specified as acute or chronic (principal); N76.0 Acute vaginitis
CPT/HCPCS: 36415; 74177; 80048; 80076; 81003; 81015; 81025; 83690; 85025; 87086; 87088; 87210; 96361; 96374; 96375; 99284; J0696; J2270; J2405; J7030; Q9967

== ENCOUNTER 2022-12-05 18:31 | Emergency (ER) | payer SELFPAY ==
--- OUTSIDE RECORDS SUMMARY | 2022-12-05 18:34 | XMS REPORT | Continuity of Care Document ---
:1995 Author Organization [facility] t Address [address] [place] [address] [place] [id number] Care Team Providers Name Role Phone Unavailable Unavailable Unavailable Problems This patient has no known problems. Allergies, Adverse Reactions, Alerts This patient has no known allergies or adverse reactions. Medications This patient has no known medications. Procedures This patient has no known procedures. Results Test Description Test Time Test Comments Results Result Comments Source CT/NG, NAAT, URINE 2021-12-19 18:26:15 Test Item Value Reference Range Interpretation Comme nts GONORRHEA, NAAT NEGATIVE NEGATIVE IMPORTA NT NOTICE: SEE ANNOUNCEMENT AT (test code = [email or web address]://www.[employer]/Calcula TechnologiesrineKit Note: 06194) Assay methodolo gy is nucleic acid amplification by transcriptio n mediated amplification (TMA) utilizing the A ptima Combo 2 Assay. CHLAMYDIA, NAAT NEGATIVE NEGATIVE IMPORTA NT NOTICE: SEE ANNOUNCEMENT AT (test code = [email or web address].[employer]/RochepeerTransferbasUrineKit Note: 59706) Assay methodolo gy is nucleic acid amplification by transcriptio n mediated amplification (TMA) utilizing the A ptima Combo 2 Assay. [id number] 05:45:29 Test Item Value Reference Range Interpretation Comments RPR RESULT (test NON-REACTIVE NON-REACTIVE code = 3501) RPR TITER (test NOT INDIC. NOT INDIC. UNLESS OTHE RWISE code = 3500) TITER INDICATED, ALL TESTING PERFORMED [facility] [address] [place] [address] 0264 4 LABORATORY DIRE CTOR: DIANN MERCHANT M.D. CLIA NUMBER [id number] [place]. [id number] HIV 1/2 4TH GEN, RFLX [id number] 05:33:25 Test Item Value Reference Range Interpretation Comments HIV 1/2 4TH GEN, RFLX CONF (test NON-REACTIVE NON-REACTIVE code = 3514) HEPATITIS PANEL, [id number] 05:33:25 Test Item Value Reference Range Interpretation Comments HEPATITIS A IgM (test NON-REACTIVE NON-REACTIVE code = 69688) HEPATITIS B CORE IgM NON-REACTIVE NON-REACTIVE (test code = 4644) HEPATITIS B SURF AG NON-REACTIVE NON-REACTIVE (test code = 2739) HEPATITIS C ANTIBODY NON-REACTIVE NON-REACTIVE (test code = 4675) INTERPRETATION (NOTE) Hepatitis A HEPATITIS A: (test code sero logy shows no = 2552) evidence of acu te hepatitis A. INTERPRETATION (NOTE) Hepatitis B HEPATITIS B: (test code sero logy shows no = 39394) evidence of acu te hepatitis B and no indication of exposure to hepatitis B vir us in the previous suzi eight months. INTERPRETATION (NOTE) Hepatitis C HEPATITIS C: (test code sero logy shows no = 39196) evidence of exposure to hepatitisC viru s at this time. I t can take up to 12 months after exposure tothe hepatitis C vir us for antibodies to become detectab le in the blood in certain patient s. CULTURE, [id number] 11:22:41SPECIMEN NUMBER: [id number] CULTURE, URINE SPECIMEN NUMBER: [id number] SPECIMEN COMMENT: URINE SOURCE:URINE REPORT STATUS: FINAL FINAL REPORT: 11/03/2021 NO GROWTH AFTER 36 HOURS INCUBATION UNLESS OTHERW ISE INDICATED, ALL TESTING PERFORMED ATCLINICAL PATHOLOGY [employer] [address] [place] [address] CUT AND PRINT MACHINE OPERATOR: DIANN HOUSTON M.D. CLIA NUMBER [id number] [place]. [id number]
[2022-12-05] MEDS ORDERED: NA CHLORIDE 0.9% 1,000 ML ONE (20:12)
[2022-12-05 20:13] LABS: Absolute Lymphocytes (CBC) 1.6 K/uL (0.7-4.9); Hematocrit 38.7 % (36.0-45.0); Lymphocytes % 15.7 % (15.3-44.8); MCV 94.4 fL (80-100); MPV 8.3 fL (7.6-11.3); RBC Red Blood Cell Count 4.09 M/uL (3.86-4.86)
[2022-12-05 20:23] LABS: Barbiturates NEGATIVE (NEGATIVE); Benzodiazepines NEGATIVE (NEGATIVE); Cocaine POSITIVE (NEGATIVE); METHAMPHETAM NEGATIVE (NEGATIVE); Methadone NEGATIVE (NEGATIVE); Opiates NEGATIVE (NEGATIVE); Phencyclidine NEGATIVE (NEGATIVE); THC Cannibis POSITIVE (NEGATIVE)
[2022-12-05 20:29] LABS: ALT/SGPT 33 U/L (13-56); AST/SGOT 84 U/L (15-37); Albumin 3.9 g/dL (3.4-5.0); Alkaline Phosphatase 67 U/L (45-117); BUN Blood Urea Nitrogen 9 mg/dL (7-18); Bicarbonate 25 mmol/L (21-32); Bilirubin Direct 0.3 mg/dL (0-0.2); Bilirubin Total 0.9 mg/dL (0.2-1.0); Glomerular Filtration Rate 125 ml/min (=/>90); Glucose Level 89 mg/dL (74-106); Potassium 3.3 mmol/L (3.5-5.1); Protein, Total 6.8 g/dL (6.4-8.2); Sodium Level 139 mmol/L (136-145)
[2022-12-05 20:54] LABS: Protime INR 1.05
[2022-12-05 21:08] LABS: Urine Blood 3+ (Negative); Urine Glucose Negative (Negative); Urine Protein 1+ (Negative); Urine Specific Gravity 1.015 (1.005-1.030)
[2022-12-05 22:07] LABS: Urine Specific Gravity/Preg 1.015 (1.005-1.030)
[2022-12-05] MEDS ORDERED: POTASSIUM 25 MEQ EFFERV TAB ONE (23:01)
[2022-12-05] MEDS ORDERED: CEFTRIAXONE 1000 MG/VIAL ONE (23:01)
[2022-12-08 06:26] VITALS: BP 122/76; TEMP 99.1; O2SAT 99
--- NOTE | 2022-12-08 13:10 | EKG ---
Test Date: 2022-12-05 Test Time: 20:15:23 [employer] Vice President: JADIEL MEASUREMENT RESULTS: Intervals: Rate: 75 HI: 140 QRSD: 80 QT: 402 QTc: 448 [place]: P: -2 HI: 140 QRS: 83 T: 60 INTERPRETIVE STATEMENTS: Normal sinus rhythm Early repolarization Normal ECG Compared to ECG 07/28/2020 12:20:57 Early repolarization now present Electronically Signed On 12-08-22 13:05:59 CDT by Trell Arizmendi
--- NOTE | 2022-12-19 16:17 | EDPHYS ---
Physician Documentation [facility] Name: Terri Fortune Age: 27 yrs Sex: Female : 1995 Arrival Date: 12/05/2022 Time: 18:32 Bed 18 Private MD: ED Physician Jaron Hernandez HPI: 12/05 19:28 This 27 yrs old Female presents to ER via Ambulatory with complaints of curtis Possible Overdose, Suicidal Ideation. 19:28 The patient presents to the emergency department after a known overdose, that was curtis intentional. Context: the OD/poisoning occurred at at a friend's home, and was witnessed by a friend, Psychiatric history: the patient has a known psychiatric disorder, depression, Previous OD/poisoning history: none. Associated signs and symptoms: The patient has no apparent associated signs or symptoms. Severity of symptoms: At their worst the symptoms were mild in the emergency department the symptoms are unchanged. The patient has experienced similar episodes in the past, a few times. Historical: - Allergies: 19:11 No Known Allergies; ph - PMHx: 19:11 Ovarian cysts; ph - Immunization history:: Adult Immunizations unknown. - Social history:: Smoking status: Reported history of juuling and/or vaping. Patient uses alcohol, on a daily basis. street drugs, cocaine. ROS: 19:30 Constitutional: Negative for fever, chills, and weight loss, Eyes: Negative for injury, curtis pain, redness, and discharge, ENT: Negative for injury, pain, and discharge, Neck: Negative for injury, pain, and swelling, Cardiovascular: Negative for chest pain, palpitations, and edema, Respiratory: Negative for shortness of breath, cough, wheezing, and pleuritic chest pain, Abdomen/GI: Negative for abdominal pain, nausea, vomiting, diarrhea, and constipation, Back: Negative for injury and pain, : Negative for injury, bleeding, discharge, and swelling, MS/Extremity: Negative for injury and deformity, Skin: Negative for injury, rash, and discoloration, Neuro: Negative for headache, weakness, numbness, tingling, and seizure, Allergy/Immunology: Negative for hives, rash, and allergies, Endocrine: Negative for neck swelling, polydipsia, polyuria, polyphagia, and marked weight changes, Hematologic/Lymphatic: Negative for swollen nodes, abnormal bleeding, and unusual bruising. 19:30 Psych: Positive for depression, suicidal ideation. Exam: 19:30 Constitutional: This is a well developed, well nourished patient who is awake, alert, curtis and in no acute distress. Head/Face: Normocephalic, atraumatic. Eyes: Pupils equal round and reactive to light, extra-ocular motions intact. Lids and lashes normal. Conjunctiva and sclera are non-icteric and not injected. Cornea within normal limits. Periorbital areas with no swelling, redness, or edema. ENT: Nares patent. No nasal discharge, no septal abnormalities noted. Tympanic membranes are normal and external auditory canals are clear. Oropharynx with no redness, swelling, or masses, exudates, or evidence of obstruction, uvula midline. Mucous membranes moist. Neck: Trachea midline, no thyromegaly or masses palpated, and no cervical lymphadenopathy. Supple, full range of motion without nuchal rigidity, or vertebral point tenderness. No Meningismus. Chest/axilla: Normal chest wall appearance and motion. Nontender with no deformity. No lesions are appreciated. Cardiovascular: Regular rate and rhythm with a normal S1 and S2. No gallops, murmurs, or rubs. Normal PMI, no JVD. No pulse deficits. Respiratory: Lungs have equal breath sounds bilaterally, clear to auscultation and percussion. No rales, rhonchi or wheezes noted. No increased work of breathing, no retractions or nasal flaring. Abdomen/GI: Soft, non-tender, with normal bowel sounds. No distension or tympany. No guarding or rebound. No evidence of tenderness throughout. Back: No spinal tenderness. No costovertebral tenderness. Full range of motion. Skin: Warm, dry with normal turgor. Normal color with no rashes, no lesions, and no evidence of cellulitis. MS/ Extremity: Pulses equal, no cyanosis. Neurovascular intact. Full, normal range of motion. Neuro: Awake and alert, GCS 15, oriented to person, place, time, and situation. Cranial nerves II-XII grossly intact. Motor strength 5/5 in all extremities. Sensory grossly intact. Cerebellar exam normal. Normal gait. 19:30 Psych: Behavior/mood is pleasant, cooperative, depressed, Affect is flat, Oriented to person, place, time, Patient has no thoughts/intents to harm self or others. Judgement / Insight is normal. Memory is normal. Delusions/hallucinations are not present. 20:49 ECG was reviewed by the Attending Physician. [facility] Vital Signs: 19:06 BP 131 / 87; Pulse 112; Resp 18; Temp 98.1; Pulse Ox 100% on R/A; Weight 58.06 kg; ph Height 5 ft. 2 in. ; 12/06 00:00 BP 95 / 60; Pulse 80; Resp 17; Pulse Ox 100% ; Pain 0/10; jj7 06:26 BP 107 / 73; Pulse 63; Resp 18; Pulse Ox 100% on R/A; oe 08:45 BP 110 / 70; Pulse 67; Resp 19 S; Pulse Ox 100% on R/A; Pain 0/10; kc6 19:17 BP 107 / 70; Pulse 65; Resp 15; Pulse Ox 99% on R/A; ha1 12/07 07:35 BP 104 / 63; Pulse 68; Resp 18; Temp 98.1(O); Pulse Ox 100% ; db 19:09 BP 122 / 76; Pulse 66; Resp 14 S; Temp 99.1; Pulse Ox 99% on R/A; as7 12/05 19:06 Body Mass Index 23.41 (58.06 kg, 157.48 cm) ph 12/06 00:00 Pain Scale: Adult jj7 08:45 Pain Scale: Adult kc6 NIH Stroke Scale Scores: 12/08 04:23 NIHSS Score: 0 curtis Gasper Coma Score: 04:23 Eye Response: spontaneous(4). Motor Response: obeys commands(6). Verbal Response: curtis oriented(5). Total: 15. MDM: 12/05 19:14 Patient medically screened. curtis 19:30 Differential diagnosis: Ingestion/exposure to seroquel. Differential Diagnosis altered [facility] mental status, sepsis. Data reviewed: vital signs, nurses notes, lab test result(s), CBC, electrolytes, hepatic panel, EKG. Consideration of Admission/Observation Patient was admitted/placed on observation. Escalation of care including admission/observation considered. I considered the following discharge prescriptions or medication management in the emergency department Medications were administered in the Emergency Department. See MAR. Care significantly affected by the following Social Determinants of Health: Poor access to healthcare and/or lack of insurance, Poor access to transportation, Inadequate housing, Misuse of alcohol and/or drugs, Problems related to primary support group. 19:38 Test considered but Not performed: X-ray: no cxr. [facility] 12/08 04:23 ED course: not homicidal , not suicidal, will get help. [facility] 12/05 19:17 Order name: Acetaminophen; Complete Time: 22:13 [facility] 12/05 19:17 Order name: Basic Metabolic Panel; Complete Time: 22:13 [facility] 12/05 19:17 Order name: CBC with Diff; Complete Time: 22:13 [facility] 12/05 19:17 Order name: ETOH Level; Complete Time: 22:13 [facility] 12/05 19:17 Order name: Hepatic Function; Complete Time: 22:13 [facility] 12/05 19:17 Order name: PT-INR; Complete Time: 22:13 [facility] 12/05 19:17 Order name: Ptt, Activated; Complete Time: 22:13 [facility] 12/05 19:17 Order name: Salicylate; Complete Time: 22:13 [facility] 12/05 19:17 Order name: Urine Drug Screen; Complete Time: 22:13 [facility] 12/05 21:09 Order name: Urine Dipstick-Ancillary; Complete Time: 22:13 [facility] 12/05 21:53 Order name: Urine --Ancillary (enter results); Complete Time: 22:13 12/06 01:40 Order name: SARS-COV-2 RT PCR; Complete Time: 23:53 12/05 19:17 Order name: EKG; Complete Time: 19:17 [facility] 12/06 07:39 Order name: Diet Finger Food; Complete Time: 07:40 aa5 12/07 07:32 Order name: Diet Finger Food; Complete Time: 07:33 kj1 12/07 16:22 Order name: Diet Finger Food; Complete Time: 16:23 kj1 12/05 19:17 Order name: EKG - Nurse/Tech; Complete Time: 21:45 [facility] 12/05 19:17 Order name: IV Saline Lock; Complete Time: 20:03 [facility] 12/05 19:17 Order name: Labs collected and sent; Complete Time: 20:03 [facility] 12/05 19:17 Order name: Suicide Precautions; Complete Time: 20:04 [facility] 12/05 19:17 Order name: Suicide Screening ([place]); Complete Time: 20:04 [facility] 12/05 19:17 Order name: Urine Dipstick-Ancillary (obtain specimen); Complete Time: 21:45 curtis 12/05 19:17 Order name: Urine Test (obtain specimen); Complete Time: 21:45 [facility] EC/10 20:49 Rate is 75 beats/min. Rhythm is regular. QRS [place] is Normal. ND interval is normal. QRS curtis interval is normal. QT interval is normal. No Q waves. T waves are Normal. ST Segment is elevated in leads II, III, aVF, V2, V3, V4, V5, V6. Clinical impression: No evidence of ischemia. Interpreted by me. Reviewed by me. Administered Medications: 20:12 Drug: NS 0.9% IV 1000 ml Route: IV; Rate: 1 bolus; Site: right antecubital; jj7 21:01 Follow up: IV Status: Completed infusion jj7 23:16 Drug: Potassium PO Effervescent Tablet 50 mEq Route: PO; j7 12/06 07:17 Follow up: Response: No adverse reaction [facility] 12/05 23:16 Drug: Rocephin IV 1 grams Route: IV; Rate: per protocol; Site: right antecubital; jj7 12/06 07:18 Follow up: Response: No adverse reaction; IV Status: Completed infusion kc6 Disposition Summary: 12/08/22 04:25 Discharge Ordered Location: Home curtis Problem: new(12/08/22 04:25) curtis Symptoms: have improved(12/08/22 04:25) curtis Condition: Stable(12/08/22 04:25) curtis Diagnosis - Major depressive disorder, recurrent, mild curtis - Cocaine abuse(12/08/22 04:25) curtis - Suicide attempt(12/08/22 04:25) curtis - Suicidal ideations - resolved(12/08/22 04:25) curtis Followup: curtis - With: Private Physician - When: 2 - 3 days - Reason: Recheck today's complaints, Continuance of care, Re-evaluation by your physician Followup: curtis - With: Jose Jones MD - When: 2 - 3 days - Reason: Recheck today's complaints, Continuance of care, Re-evaluation by your physician Discharge Instructions: - Discharge Summary Sheet curtis - Substance Use Disorder curtis - Suicidal Feelings: How to Help Yourself curtis - Helping Someone Who is Suicidal curtis - Major Depressive Disorder, Adult, [id number] curtis - Major Depressive Disorder, Adult curtis - Managing Depression, Adult curtis - Substance Use Disorder and Mental Illness curtis - Supporting Someone With Substance Use Disorder [facility] Forms: - Medication Reconciliation Form curtis - Thank You Letter curtis - Antibiotic Education curtis - Prescription Opioid Use curtis NIH Stroke Scale - NIH Stroke Score Date: 12/08/2022 Time: 04:23 Total Score = 0 10. Dysarthria (speech clarity - read or repeat words) - 0(Normal) 11. Extinction and Inattention (visual/tactile/auditory/spatial/personal) - 0(No abnormality) 1a. Level of Consciousness (LOC) - 0(Alert) 1b. Level of Consciousness (LOC) (Month \T\ Age) - 0(Both) 1c. LOC Commands (Open \T\ Closes Eyes/Marketing Officer) - 0(Both) 2. Best Gaze (Lateral Gaze Paresis) - 0(Normal) 3. Visual Field Loss - 0(No visual loss) 4. Facial Palsy - 0(Normal) 5a. Left Arm: Motor (10-second hold) - 0(No drift) 5b. Right Arm: Motor (10-second hold) - 0(No drift) 6a. Left Leg: Motor (5-second hold - always test supine) - 0(No drift) 6b. Right Leg: Motor (5-second hold - always test supine) - 0(No drift) 7. Limb Ataxia (finger/nose \T\ heel/cardozo - test with eyes open) - 0(Absent) 8. Sensory Loss (pinprick arms/legs/face) - 0(Normal) 9. Best Language: Aphasia (description/naming/reading) - 0(No aphasia) Initials: [facility] Signatures: Dispatcher [employer] EDMS Jaron Hernandez MD MD cha Waters, Shelly, TIRE CURER-C TIRE CURER-Csnw Laura Lebron RN RN ph Johnson, Juwairiyah, RN RN jj7 Kylah Villarreal RN kc6 Corrections: (The following items were deleted from the chart) 12/05 22:14 19:39 to psych, volunteer [facility] 12/08 04:22 12/05 19:39 Psych Facility [facility] 12/08 04:22 12/05 19:39 Higher level of care [facility] 12/08 04:12/05 19:39 [facility] 12/08 04:12/05 19:39 new [facility] 12/08 04:12/05 19:39 have improved [facility] 12/08 04:12/05 19:39 Suicidal ideations [facility] 12/08 04:12/05 19:39 Suicide attempt [facility] 12/08 04:12/05 19:39 Major depressive disorder, recurrent, moderate [facility] 12/08 04:12/05 22:14 to psych, volunteer [facility] 12/08 04:12/05 22:14 UTI/ Urinary tract infection, site not specified [facility] 12/08 04:22 12/05 22:14 Cocaine abuse [facility] 12/08 04:22 12/05 22:14 Hypokalemia [facility]
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
== END 2022-12-08 05:00 | disposition home or self-care (01) ==
LOC: ER 18:31
DX: T50.902A Poisoning by unspecified drugs, medicaments and biological substances, intentional self-harm, initial encounter (principal); F14.10 Cocaine abuse, uncomplicated; F33.0 Major depressive disorder, recurrent, mild
CPT/HCPCS: 36415; 80048; 80076; 80307; 81003; 81025; 85025; 85610; 85730; 93005; 96361; 96365; 96366; 99284; G0480; J0696; J7030; U0003

== ENCOUNTER 2023-03-14 22:22 | Emergency (ER) | payer SELFPAY ==
--- OUTSIDE RECORDS SUMMARY | 2023-03-14 22:25 | XMS REPORT | Continuity of Care Document ---
:1995 Author Organization [facility] t Address [address] [place] [address] [place] [id number] Care Team Providers Name Role Phone Unavailable Unavailable Unavailable Problems This patient has no known problems. Allergies, Adverse Reactions, Alerts This patient has no known allergies or adverse reactions. Medications This patient has no known medications. Procedures This patient has no known procedures. Encounters Start End Encounter Admission Attending Care Care Encounter Source Date/Time Date/Time Type Type Clinicians Facility Department ID 2023-02-18 2023-02-18 Outpatient [facility] [id number] [id number] Alphonse 14:08:40 14:08:40 0524 F Aaron 2023-02-10 2023-02-10 Outpatient [facility] [id number] [id number] Alphonse 15:51:37 15:51:37 0516 F Aaron Results Test Description Test Time Test Comments Results Result Comments Source CULTURE, URINE 2023-02-14 SPECIMEN NUMBER: 15:20:18 [id number] CULTURE, URINE SPECIMEN NUMBER: [id number] SPECIMEN COMMENT: URINE SOURCE: URINE REPORT STATUS: FINAL ISOLATE NUMBER 1: ORGANISM: 02/13/2023 10-50,000 CFU/ML GRAM NEGATIVE BACILLI IDENTIFICATION: 02/14/2023 ESCHERICHIA COLI ADDITIONAL OBSERVATIONS: 02/14/2023 10-50,000 CFU/ML [facility] PRESENT NO COMMON PATHOGENS E. COLI AMOX ICILLIN/CA SENSITIVE <=8/4AMPICILLIN RESISTANT >16CEFAZOLIN SENSITIVE <=2CEFTRIAXONE SENSITIVE <=1CIPROFLOXACIN SENSITIVE <=1LEVOFLOXACIN SENSITIVE <=2NITROFURANTOIN SENSITIVE <=32PIP/TAZOBAC SENSITIVE <=16TETRACYCLINE RESISTANT >8TOBRAMYCIN SENSITIVE <=4TRIMETH/SULFA SENSITIVE <=2/38 NOTE: NUMBERS DISPLAYED REPRESENT MINIMUM INHIBITORY CONCENTRATION ([place]) WHICH IS EXPRESSED IN MCG/ML. VAGINAL PATHOGENS DNA PANEL 2023-02-13 12:34:11 Test Item Value Reference Range Interpretation Comme nts EMMA SPECIES (test code POSITIVE NEGATIVE A = ) G. VAGINALIS (test code = NEGATIVE NEGATIVE ) T. VAGINALIS (test code = NEGATIVE NEGATIVE N ote: The BD Affirm VPIII Microbial ) Identification Testis a DNA probe test intended for us e in the detectionand identification of Emma species, Gardnerellavagi nalis and Trichomonas vaginalis nucle ic acid. NOTE:2023-02-13 06:03:58 Test Item Value Reference Range Interpretation Comments NOTE: (test code = (NOTE) IN ACCOR DANCE WITH FEDERAL 998) GUIDELINES REQU IRING ALL VERBAL REQUESTS FOR LABORATORY TEST S TO BE ACCOMPANIED BY WRITTEN AUTHORIZATION W ITHIN 30 DAYS OF THIS REQUEST , PLEASE SIGN BELOW AND RETUR N A COPY OF THIS REPORT BY FAX TO THE [facility]ORAT[facility] DEPARTMENT AT . PHYSICIAN'S SIG NATURE DATE UNLESS OTHERWISE INDIC ATED, ALL TESTING PERFORM ED AT [facility] [place] [address] LABORATORY DIRE CTOR: NO JENKINS M.D. CLIA NUMBER [id number] CAP ACCREDITATION N O. [id number] CT/NG, NAAT, [id number] 16:50:19 Test Item Value Reference Range Interpretation Comments CHLAMYDIA, NAAT, POSITIVE NEGATIVE A Testing is performed with URINE (test code Maribell KILEY 6800/8800 = 03123) systems usingre al-time polymerase renetta n reaction (PCR) method. GONORRHEA, NAAT, NEGATIVE NEGATIVE Testing is performed with URINE (test code Maribell KILEY 6800/8800 = 64726) systems usingre al-time polymerase renetta n reaction (PCR) method. A negative result does not exclude low level infection , specimensamplin g error, or collection erro r. HERPES SIMPLEX AB, [id number] 12:55:53 Test Item Value Reference Range Interpretation Comments HERPES SIMPLEX AB, 0.78 INDEX SEE BELOW INTERPRE TATION UNITS IgM (test code = RANGE ----- --------- 55674) ----- ----- NEG ATIVE INDEX <=0.89 EQ UIVOCAL INDEX 0.90-1.09 POSITIVE INDEX >=1.10 HERPES SIMPLEX 1/2 AB, IgG [id number] 07:06:54 Test Item Value Reference Range Interpretation Comments HERPES SIMPLEX 1 0.029 INDEX SEE BELOW INTERPRETA TION UNITS AB, IgG (test RANGE -------- ------ code = 47240) ----- ----- NO N-REACTIVE INDEX <1.000 RE ACTIVE INDEX >=1.00 0 HERPES SIMPLEX 2 54.600 INDEX SEE BELOW H INTERPRETA TION UNITS AB, IgG (test RANGE -------- ------ code = 68010) ----- ----- NO N-REACTIVE INDEX <1.000 R EACTIVE INDEX >=1.00 0 HIV 1/2 4TH GEN, RFLX [id number] 07:06:54 Test Item Value Reference Range Interpretation Comments HIV 1/2 4TH GEN, RFLX CONF (test NON-REACTIVE NON-REACTIVE code = 3514) HEPATITIS PANEL, [id number] 07:06:54 Test Item Value Reference Range Interpretation Comments HEPATITIS A IgM (test NON-REACTIVE NON-REACTIVE code = 27020) HEPATITIS B CORE IgM NON-REACTIVE NON-REACTIVE (test code = 4644) HEPATITIS B SURF AG NON-REACTIVE NON-REACTIVE (test code = 2739) HEPATITIS C ANTIBODY NON-REACTIVE NON-REACTIVE (test code = 4675) INTERPRETATION (NOTE) Hepatitis A HEPATITIS A: (test code sero logy shows no = 2552) evidence of acu te hepatitis A. INTERPRETATION (NOTE) Hepatitis B HEPATITIS B: (test code sero logy shows no = 98901) evidence of acu te hepatitis B and no indication of exposure to hepatitis B vir us in the previous suzi eight months. INTERPRETATION (NOTE) Hepatitis C HEPATITIS C: (test code sero logy shows no = 81592) evidence of exposure to hepatitisC viru s at this time. I t can take up to 12 months after exposure tothe hepatitis C vir us for antibodies to become detectab le in the blood in certain patient s. [id number] 03:37:29 Test Item Value Reference Range Interpretation Comments RPR RESULT (test NON-REACTIVE NON-REACTIVE code = 3501) RPR TITER (test NOT INDIC. NOT INDIC. UNLESS OTHE RWISE code = 3500) TITER INDICATED, ALL TESTING PERFORMED AT [facility] [employer], [facility]. [address] [place] [address] 4 LABORATORY DIRE CTOR: NO JENKINS M.D. CLIA NUMBER [id number] CAP ACCREDITATI ON NO. CT/NG, NAAT, [id number] 18:26:15 Test Item Value Reference Range Interpretation Comments GONORRHEA, NAAT NEGATIVE NEGATIVE IMPORTA NT NOTICE: SEE (test code = [place] [address]) [email or web address] Note: Assay methodology is nucleic acid amplification b y driver sales m ediated amplification ( TMA) utilizing the A ptima Combo 2 Assay. CHLAMYDIA, NAAT NEGATIVE NEGATIVE IMPORTA NT NOTICE: SEE (test code = [place] [address]) [email or web address] Note: Assay methodology is nucleic acid amplification b y driver sales m ediated amplification ( TMA) utilizing the A ptima Combo 2 Assay. [id number] 05:45:29 Test Item Value Reference Range Interpretation Comments RPR RESULT (test NON-REACTIVE NON-REACTIVE code = 3501) RPR TITER (test NOT INDIC. NOT INDIC. UNLESS OTHE RWISE code = 3500) TITER INDICATED, [facility] [employer], [facility]. [address] [place] [address] 4 LABORATORY DIRE CTOR: DIANN MERCHANT M.D. CLIA NUMBER [id number] CAP ACCREDITATI ON NO. HIV 1/2 4TH GEN, RFLX [id number] 05:33:25 Test Item Value Reference Range Interpretation Comments HIV 1/2 4TH GEN, RFLX CONF (test NON-REACTIVE NON-REACTIVE code = 3514) HEPATITIS PANEL, [id number] 05:33:25 Test Item Value Reference Range Interpretation Comments HEPATITIS A IgM (test NON-REACTIVE NON-REACTIVE code = 04264) HEPATITIS B CORE IgM NON-REACTIVE NON-REACTIVE (test code = 4644) HEPATITIS B SURF AG NON-REACTIVE NON-REACTIVE (test code = 2739) HEPATITIS C ANTIBODY NON-REACTIVE NON-REACTIVE (test code = 4675) INTERPRETATION (NOTE) Hepatitis A HEPATITIS A: (test code sero logy shows no = 2552) evidence of acu te hepatitis A. INTERPRETATION (NOTE) Hepatitis B HEPATITIS B: (test code sero logy shows no = 26849) evidence of acu te hepatitis B and no indication of exposure to hepatitis B vir us in the previous suzi eight months. INTERPRETATION (NOTE) Hepatitis C HEPATITIS C: (test code sero logy shows no = 62820) evidence of exposure to hepatitisC viru s at this time. I t can take up to 12 months after exposure tothe hepatitis C vir us for antibodies to become detectab le in the blood in certain patient s. CULTURE, [id number] 11:22:41SPECIMEN NUMBER: [id number] CULTURE, URINE SPECIMEN NUMBER: [id number] SPECIMEN COMMENT: URINE SOURCE:URINE REPORT STATUS: FINAL FINAL REPORT: 11/03/2021 NO GROWTH AFTER 36 HOURS INCUBATION UNLESS OTHERW ISE INDICATED, [facility] 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 CLIA NUMBER [id number] [place]. [id number]
[2023-03-14] MEDS ORDERED: IBUPROFEN 400 MG TAB ONE (23:14)
[2023-03-14] MEDS ORDERED: IBUPROFEN 200 MG TAB PO ONE (23:15)
[2023-03-14] MEDS ORDERED: HYDROCODONE/APAP 5/325 MG TAB ONE (23:15)
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
[2023-03-15 01:14] VITALS: BP 125/80; TEMP 97.9; O2SAT 99
--- NOTE | 2023-03-16 13:31 | RAD REPORT ---
EXAM DESCRIPTION: CT Head and Cervical Spine Without Intravenous Contrast CLINICAL HISTORY: The patient is 27 years old and is Female; TRAUMA TECHNIQUE: Axial computed tomography images of the head/brain and cervical spine without intravenous contrast. Sagittal and coronal reformatted images were created and reviewed. This CT exam was pe rformed using one or more of the following dose reduction techniques: automated exposure control, a djustment of the mA and/or kV according to patient size, and/or use of iterative reconstruction techn ique. COMPARISON: No relevant prior studies available. FINDINGS: Brain: Unremarkable. No hemorrhage. No significant white matter disease. No edema. Ventricles: Unremarkable. No ventriculomegaly. Skull: No acute fracture. Sinuses: Unremarkable as visualized. No acute sinusitis. Mastoid air cells: Unremarkable as visualized. No mastoid effusion. Vertebrae: Unremarkable. No acute fracture. Normal alignment. Discs/spinal canal/neural foramina: No acute findings. No spinal canal stenosis. Soft tissues: Unremarkable. IMPRESSION: No acute intracranial abnormality. No acute findings in the cervical spine. Electronically signed by: Ray Parker MD 03/15/2023 12:38 AM CDT Due to temporary technical issues with the PACS/Fluency reporting system, reports are being signed by the in house radiologist without review as a courtesy to ensure prompt reporting. The interpreting r adiologist is fully responsible for the content of the report.
--- NOTE | 2023-03-16 14:29 | RAD REPORT ---
EXAM DESCRIPTION: RAD - Shoulder Left 2 View - 03/14/2023 10:51 pm CLINICAL HISTORY: Pain COMPARISON: None. TECHNIQUE: Left Shoulder 2 Views FINDINGS: Left clavicle distal-most (lateral-most) aspect acute displaced fracture. Distal lateral fragment is inferiorly displaced by one shaft width. Overriding bone fragments of about 1.6 cm. No dislocation. No significant sclerotic/lytic bone lesion. Joint spaces unremarkable. Soft tissues unremarkable. IMPRESSION: Left clavicle distal-most (lateral-most) aspect acute displaced fracture. Electronically signed by: Jose Daniel Carmona MD 03/14/2023 11:55 PM CDT Due to temporary technical issues with the PACS/Fluency reporting system, reports are being signed by the in house radiologist without review as a courtesy to ensure prompt reporting. The interpreting r adiologist is fully responsible for the content of the report.
== END 2023-03-15 01:08 | disposition home or self-care (01) ==
LOC: ER 22:22
DX: Z04.71 Encounter for examination and observation following alleged adult physical abuse (principal); S42.022A Displaced fracture of shaft of left clavicle, initial encounter for closed fracture
CPT/HCPCS: 70450; 72125; 96372; 99284